=== PATIENT | female | born 1970 | race Caucasian/White ===

== ENCOUNTER 2019-05-03 13:26 | Outpatient (REF) | payer MEDICAID, SELFPAY ==
[2019-05-03 19:47] LABS: HCT 45.6 % (36.0-46.0); HGB 15.2 g/dL (12.0-15.5); Mean Corp. HGB Concentration 33.3 g/dL (32.0-36.0); Mean Corpuscular Hemoglobin 29.6 pg (27.0-33.0); Mean Corpuscular Volume 88.7 fL (80-95); Mean Platelet Volume 13.4 fL (8.0-11.0); Platelet Count 155 x1000/uL (130-400); RBC 5.14 m/cumm (4.00-5.20); RBC Distribution Width 13.7 % (11.7-14.6); White Blood Cell Count 9.72 k/cumm (4.4-10.8)
[2019-05-03 20:19] LABS: Vitamin D 25 Total 12.9 ng/ml (30-100)
[2019-05-03 20:22] LABS: ALT 20 U/L (14-59); AST 13 U/L (15-37); Alkaline Phosphatase 99 U/L (46-116); Anion Gap 10.6 mmol/L (3-11); BUN 9 mg/dL (7-18); Bilirubin, Total 0.3 mg/dL (0.2-1.0); CO2 27.4 mmol/L (21.0-32.0); CREATININE 0.64 mg/dL (0.55-1.02); Calculated LDL 157 mg/dL; Chloride 104 mmol/L (98-107); Cholesterol 230 mg/dL (<200); Ferritin 16 ng/mL (8-252); Glucose 73 mg/dL (74-106); HDL Cholesterol 54 mg/dL (40-60); Potassium 4.1 mmol/L (3.5-5.1); Sodium 142 mmol/L (136-145); TSH (W/Ref FT4) 2.08 uIU/mL (0.36-3.74); Total Protein 7.4 g/dL (6.4-8.2); Triglyceride 96 mg/dL (<150); Vitamin B12 729 pg/mL (193-986)
== END 2019-05-03 13:46 ==
LOC: NCHCN 13:26
PROVIDERS: PCP Nurse Practitioner Family; Visit Provider Nurse Practitioner Family
DX: G47.9 Sleep disorder, unspecified (principal); Z13.220 Encounter for screening for lipoid disorders; Z00.00 Encounter for general adult medical examination without abnormal findings
CPT/HCPCS: 80053; 80061; 82306; 85027; 82607; 82728; 83036; 84443

== ENCOUNTER 2019-06-22 01:41 | Outpatient (CLI) | payer MEDICAID, SELFPAY ==
--- NOTE | 2019-06-22 16:05 | DI.MAMMO_ITS ---
EXAM: MG MAMMO SCREENING CLINICAL HISTORY: [facility]LY [facility], LATER [facility] Z00.00, SCREENING. BASELINE TECHNIQUE: Bilateral full field digital CC and MLO mammographic images were obtained with 3D tomosyn thesis and utilizing computer aided detection (CAD). COMPARISON: Available for comparison. FINDINGS: Masses/Architectural Distortion: None seen. Microcalcifications: No suspicious pleomorphic-type are seen. Skin Thickening/Nipple Retraction: None. IMPRESSION: 1. No significant interval change with no specific features of malignancy noted. 2. Unless there is more urgent need, screening mammography is recommended, as per [employer] guidelines. ACR BI-RAD Category- 1 Negative Breast Density - Category C - Heterogeneously dense The mammogram demonstrates the patient's breast tissue is dense. Dense breast tissue is very common a nd is not abnormal but dense breast tissue can make it harder to find cancer on a mammogram. Also, de nse breast tissue may increase their breast cancer risk. This information about the result of the [facility] mogram report was provided to the patient to raise their awareness. Use this report when you speak wi th the patient about their risks for breast cancer, which includes their family history. At that time , you may recommend for more screening tests (Ultrasound or MRI) as they might be useful based on the ir risk. A negative radiographic report should not delay biopsy if a dominant or clinically suspicious mass is present. Up to ten percent of cancers are not identified on mammography. A negative report may reinforce clinical impression. Adenosis and dense breasts may obscure an underlying neoplasm. False positive reports average 6 to 10%. Patient will receive a letter notifying them of these results.
== END 2019-06-22 02:01 ==
PROVIDERS: PCP Nurse Practitioner Family; Visit Provider Nurse Practitioner Family
DX: Z12.31 Encounter for screening mammogram for malignant neoplasm of breast (principal)
CPT/HCPCS: 77063; 77067

== ENCOUNTER 2019-10-07 01:09 | Outpatient (CLI) | payer MEDICAID, SELFPAY ==
--- NOTE | 2019-10-07 09:35 | DI.RAD_ITS ---
EXAM: XR CHEST 2V PA LATERAL CLINICAL HISTORY: uncontrolled vomiting/can't eat, abnl weight loss, R63.4, R11.10 TECHNIQUE: 2D digital imaging was performed. COMPARISON: No exams were available for comparison FINDINGS: MEDIASTINUM: Normal. HEART: Normal. PULMONARY VASCULATURE: Normal. LUNGS: Clear. PLEURAL SPACE: No pleural effusion or pneumothorax. BONE:Normal. Pectus excavatum deformity. OTHER FINDINGS:Normal. IMPRESSION: No acute pulmonary findings. DATA REPOSITORY: RADIATION DOSE DELIVERED:
== END 2019-10-07 01:29 ==
PROVIDERS: PCP Nurse Practitioner Family; Visit Provider Surgery
DX: R63.4 Abnormal weight loss (principal); R11.10 Vomiting, unspecified
CPT/HCPCS: 71046

== ENCOUNTER 2019-10-11 08:49 | Outpatient (CLI) | payer MEDICAID, SELFPAY ==
[2019-10-12 03:16] LABS: COVID-19 RT-PCR UVMMC Result Negative (Negative)
== END 2019-10-11 09:09 ==
PROVIDERS: PCP Nurse Practitioner Family; Visit Provider Surgery
DX: Z11.59 Encounter for screening for other viral diseases (principal)
CPT/HCPCS: U0003

== ENCOUNTER 2019-10-14 06:54 | Day surgery (SDC) | payer MEDICAID, SELFPAY ==
--- NOTE | 2019-10-14 | DI.CT_ITS ---
EXAM: CT ABDOMEN PELVIS W CLINICAL HISTORY: voting and weight loss. TECHNIQUE: Imaging Protocol: Axial computed tomography images with coronal and sagittal reformatted images were created and reviewed CONTRAST MATERIAL: Intravenous: Omnipaque 350 Contrast volume:100 ml Oral: yes COMPARISON: No exams were available for comparison FINDINGS: ABDOMEN: Lung Bases: Mild dependent changes.. Liver: Normal density. No measurable mass. Gallbladder and biliary tract: No radiodense calculus or dilation. Pancreas: Normal density, no abnormal calcifications or inflammatory process. Spleen: Normal. Kidneys: Normal size, contour and axis. No radiodense stones. There is dilatation of both renal pelv es, right greater than left. The mid right ureter is dilated without evidence of an obstructing ston e. Adrenal glands: No masses seen. Abdominal Aorta: Abdominal portion non-dilated. PELVIS: Bladder: Symmetric distention, no gross wall thickening. Bowel: No obstruction or bowel wall thickening. Normal appendix. Peritoneal cavity: No ascites, collection or mesenteric inflammatory response. Bones: Advanced degenerative disc changes at L5-S1. Reproductive organs: The uterus is deviated toward the right and measures 11.2 by 8.3 x 5.4 cm. The endometrial stripe measures 12 millimeters in thickness. No focal endometrial abnormality or fibroid is seen. Low-density lesions, likely nabothian cysts are noted at the cervix. The left ovary has a normal appearance. The right ovary appears to be located at the posterior aspect of the uterus and shows a cyst measuring 3.2 x 4.4 by 2.4 cm. No free fluid is seen.. Lymph nodes: Unremarkable. Impression: 1. Dilatation of the right renal pelvis and right ureter without evidence of an extra of obstructing stone. 2. 4.4 centimeter air right ovarian cyst. Pelvic ultrasound could be considered for further evaluat ion. RADIATION DOSE DELIVERED: 778.77mGy.cm Total DLP DATA REPOSITORY: All CT scans at this facility are submitted to the National Radiology Data Registry (NRDR) Dose Index Registry (DIR) with the [employer] (ACR). RADIATION OPTIMIZATION: All CT scans at this facility use at least one of these dose optimization te chniques: automated exposure control; mA and/or kV adjustment per patient size (includes targeted exa ms where dose is matched to clinical indication); or iterative reconstruction.
[2019-10-14 07:12] VITALS: BP 114/76; PULSE 74; RESP 16; TEMP 36.4; O2SAT 100
[2019-10-14] MEDS: Lactated Ringers 1,000 ML 80 ML IV (07:26)
--- NOTE | 2019-10-14 09:18 | W.PM.ENDDOP ---
Date of service: 10/14/19 Time of Service: 09:19 Endoscopy Report DATE OF PROCEDURE: 10/14/19 PRE-OP DIAGNOSIS: intractible vomiting/dysphagia/wt loss POST-OP DIAGNOSIS: same PROCEDURE: egd w/ bx SURGEON: Audrey Rousseau ANESTHESIA: MAC ESTIMATED BLOOD LOSS: 1 PATHOLOGY: other DISPOSITION: same day PROCEDURE DESCRIPTION: After informed consent was obtained the patient was take to the procedure room and placed in a supine position. Monitors were applied and a time out was done. The patients name, date of , procedure type, allergies to medications and metal in their body was reviewed. A bite block was placed and the patient was sedated. Once sedated and comfortable the gastroscope was advanced through the oropharynx which was grossly normal into the esophagus. The proximal and mid-esophagus were nl. In the distal esophagus there very minimal irritaton noted. The scope was advanced into the stomach and through the pylorus into the 3rd portion of the duodenum. The duodenum was noted to be nl. Biopsies were done All speimens are retrieved and no bleeding is noted. The scope was retracted back into the stomach and biopsies were done to rule out H. pylori. There were no ulcers. The scope was retroflexed. The cardia and fundus were noted to be normal. There no a hiatal hernia noted. The scope was retracted back into the esophagus and biopsies were done of the GE junction to rule out Salazar's. The Z line was regular- minimal irregular. The scope was removed and the patient was woken up and taken back to [facility] in stable condition. Follow up: 2 wks
--- NOTE | 2019-10-14 09:31 | STOM_PTH ---
PATIENT: Cass Ackerman LOC: [facility] U#:[id number] AGE/SX: 48/F ROOM: RE10/14/[address]: Audrey Rousseau : 1970 BED: DIS: 10/14/2019 SPEC #: [id number] RECD: 10/14/19 12:00 STATUS: RITU LANTIGUA #: [id number] HARMAN: 10/14/19 09:[address]: Audrey Rousseau DEPT: Surgical Specimen RECD BY: Soumya Madera ENTERED: 10/14/19 12:02 SP TYPE: STOMACH OTHR DR: Romie Wise Tissues: 1 - BIOPSY BOWEL 2 - BIOPSY BOWEL 3 - STOMACH BIOPSY 4 - STOMACH BIOPSY 5 - ESOPHAGUS BIOPSY 6 - ESOPHAGUS BIOPSY Procedures: GROSS AND MICRO LEVEL 4 Comments: [id number]
--- NOTE | 2019-10-14 10:02 | W.PM.DSUDISC ---
Discharge Plan Disposition Patient Disposition: HOME Condition: Good Discharge Details Reason For Visit: UNINTENTIONAL WT LOSS Attending Provider: Audrey Rousseau Primary Care Provider: Romie Wise Home Meds and New Rx's Prescriptions: No Action cholecalciferol (vitamin D3) 250 mcg (10,000 unit) tablet 250 mcg PO DAILY RF: 0 amitriptyline 10 mg tablet 10 mg PO QHS RF: 0 Discharge Instructions Additional Instructions: Findings:normal stomach scope no asa/nsaids for 1 wk US- will call to schedule US of gallbladder and of Right ovary. cysts on ovary and mildly enlarged. CT negative Follow up:2 wks Please call if you develop: fevers >101.5 Nausea or Vomiting Abdominal pain that is not transient DAY SURGERY UNIT POST COLONOSCOPY INSTRUCTIONS 1. Because there will be medication in your system for the next 24 hours, you may feel a little sleepy. Your coordination will be affected. Therefore: a. Do not drive or operate dangerous equipment for 24 hours. b. Do not drink alcohol beverages for 24 hours (not even beer). c. Plan to go home and rest for the day. 2. Generally there are no restrictions on your activity after a day or so has gone by, but you may feel a bit fatigued for a few days. 3 After you arrive home you may have a light meal and return to a normal diet as you can tolerate it without feeling sick to your stomach. 4. After surgery, you may feel pain or discomfort. This should be only transient, but if it persists please contact your doctor. 5. If there are any questions regarding the findings of your procedure, please feel free to contact your doctor. 6. If you are unable to contact your doctor with a problem, contact the hospital at [phone]. 7. Continue all your regular medications unless directed otherwise. I understand the above instructions and have no questions. Signature of Patient or Responsible Adult Escort Date/Time Name of Responsible Adult Escort Signature of Nurse Date/Time DS: Diagnosis Discharge Diagnosis (1) Vomiting alone: Status: Acute (2) Smoker unmotivated to quit: Status: Acute (3) Weight loss, unintentional: Status: Acute
[2019-10-14] MEDS: Metoclopramide 10 MG/2 ML VIAL IVP (10:22)
[2019-10-14] MEDS: Omnipaque 350 MG/ML 100 ML BTL IJ (11:33)
[2019-10-14] MEDS: Normal Saline - Diluent 50 ML VIAL IV (11:34)
[2019-10-14] MEDS: Omnipaque 350 MG/ML 50 ML BTL IJ (11:34)
--- NOTE | 2019-10-14 11:46 | NUR.NOTE ---
Tolerated PO contrast after IV Reglan without incident. To radiology for CT and back. IV changed to saline lock. Up to BR to void. Dr. Rousseau in. Nursing Note:
[2019-10-14 11:55] VITALS: BP 110/67; PULSE 70; RESP 16; TEMP 36.3; O2SAT 96
== END 2019-10-14 12:42 | disposition home or self-care (01) ==
PROVIDERS: PCP Nurse Practitioner Family; Visit Provider Surgery
PROC: 0DJ68ZZ Inspection of Stomach, Via Natural or Artificial Opening Endoscopic (ICD-10-PCS; CPT 43235; principal; 2019-10-14 08:15)
DX: R63.4 Abnormal weight loss (principal); R13.10 Dysphagia, unspecified; R11.10 Vomiting, unspecified; K31.89 Other diseases of stomach and duodenum; K21.0 Gastro-esophageal reflux disease with esophagitis; F17.210 Nicotine dependence, cigarettes, uncomplicated
CPT/HCPCS: 43239; 88305; 74177; J2704; J2765; J3490; Q9967

== ENCOUNTER 2019-10-18 09:13 | Outpatient (CLI) | payer MEDICAID, SELFPAY ==
--- NOTE | 2019-10-18 10:00 | DI.US_ITS ---
EXAM: US ABDOMEN LIMITED CLINICAL HISTORY: GB n/v wt loss nl CT and EGD,R63.4,R11.10 TECHNIQUE: Ultrasound performed using standard protocol. COMPARISON: US US PELVIS from 10/18/2019 FINDINGS: Limited ultrasound was performed to evaluate the gallbladder. There is no evidence of cholelithiasis or biliary dilatation. There is negative sonographic Jones sign. Gallbladder wall is not thickene d. Visualized pancreas is unremarkable. IMPRESSION: Negative examination of gallbladder. DATA REPOSITORY:
--- NOTE | 2019-10-18 10:00 | DI.US_ITS ---
EXAM: US PELVIS CLINICAL HISTORY: 4cm right ovarian cyst adn thickened endometrial TECHNIQUE: Ultrasound performed using standard protocol. COMPARISON: CT CT ABDOMEN PELVIS W from 10/14/2019 FINDINGS: Pelvic ultrasound was performed transabdominally and transvaginally. Please see the accompanying brodie a sheet for measurements of the pelvic structures. The endometrial stripe is about 18 millimeters in thickness and appears heterogeneous, this is a nonspecific finding, no focal mass identified. Howev er neoplastic disease is not excluded on basis of this examination. Follow-up ultrasound or endometr ial biopsy should be considered. There is a 33 millimeter in diameter right ovarian simple cyst. This presumably represents a functio nal cyst. No complex or solid ovarian lesion identified. IMPRESSION: Heterogeneous thickening of the endometrial stripe, nonspecific, close ultrasound follow-up or endome trial biopsy recommended. DATA REPOSITORY:
== END 2019-10-18 09:33 ==
PROVIDERS: PCP Nurse Practitioner Family; Visit Provider Surgery
DX: R63.4 Abnormal weight loss (principal); R11.10 Vomiting, unspecified; N83.291 Other ovarian cyst, right side; R93.89 Abnormal findings on diagnostic imaging of other specified body structures
CPT/HCPCS: 76705; 76856

== ENCOUNTER 2020-02-24 18:38 | Outpatient (REF) | payer MEDICAID, SELFPAY ==
[2020-02-24 18:20] LABS: Abs Immature Grans 0.02 10^3/uL (0.0-0.06); Absolute Eosinophil Count 0.29 10^3/uL (0.0-0.7); Absolute Lymphocyte Count 2.44 10^3/uL (1.2-3.4); Absolute Monocyte Count 0.47 10^3/uL (0.1-0.8); Absolute Neutrophil Count 4.28 10^3/uL (1.2-6.7); Basophils % 1.3; Eosinophils % 3.8; HCT 37.5 % (36.0-46.0); HGB 11.8 g/dL (11.2-15.7); Immature Grans % 0.3; Lymphocytes % 32.1; MCHC 31.5 % (32.0-36.0); MCV 82.6 fL (80-95); Monocytes % 6.2; Neutrophils % 56.3; Nucleated RBC 0 %; Platelet Count 183 10^3/uL (130-400); RBC 4.54 10^6/uL (3.93-5.22); RDW 16.2 % (11.7-14.6); RDW-SD 48.9 fL
[2020-02-24 19:17] LABS: ALT 22 U/L (14-59); AST 13 U/L (15-37); Albumin 3.8 g/dL (3.4-5.0); Alkaline Phosphatase 104 U/L (46-116); Amylase 59 U/L (25-115); Anion Gap 10.6 mmol/L (3-11); BUN 6 mg/dL (7-18); Bilirubin, Total 0.2 mg/dL (0.2-1.0); CO2 26.4 mmol/L (21.0-32.0); CREATININE 0.71 mg/dL (0.55-1.02); Calcium 8.8 mg/dL (8.5-10.1); Chloride 103 mmol/L (98-107); Glucose 80 mg/dL (74-106); Potassium 4.1 mmol/L (3.5-5.1); Sodium 140 mmol/L (136-145); Total Protein 7.1 g/dL (6.4-8.2)
[2020-02-28 10:36] LABS: Hepatitis C Ab w Rflx HCV PCR Negative (Negative)
[2020-02-28 11:11] LABS: HIV-1/2 Ag & Ab Screen Negative (Negative)
== END 2020-02-24 18:58 ==
LOC: NCHCN 18:38
PROVIDERS: PCP Nurse Practitioner Family; Visit Provider Nurse Practitioner Family
DX: R10.11 Right upper quadrant pain (principal); Z11.4 Encounter for screening for human immunodeficiency virus [HIV]; Z11.59 Encounter for screening for other viral diseases
CPT/HCPCS: 80053; 86803; 87389; 82150; 85025

== ENCOUNTER 2020-02-25 04:15 | Outpatient (CLI) | payer MEDICAID, SELFPAY ==
--- NOTE | 2020-02-25 | DI.US_ITS ---
EXAM: US PELVIS TRANSVAGINAL CLINICAL HISTORY: ABNORMAL UTERINE BLEEDING, N93.9 TECHNIQUE: Ultrasound performed using standard protocol. COMPARISON: US US ABDOMEN LIMITED from 10/18/2019 FINDINGS: Pelvic ultrasound was performed transabdominally and transvaginally. Uterus measures 10.5 x 5.0 x 5. 9 cm. Right ovary measures 4.8 x 3.8 x 3.9 cm. Left ovary measures 1.9 x 1.2 x 1.2 cm. There is a left ap parent paraovarian cyst measuring roughly 18 x 15 millimeters in diameter. This is a simple cyst. The endometrial stripe measures up to about 2 cm in thickness and is mildly heterogeneous. Multiple small uterine fibroids are noted. No free fluid seen in the cul-de-sac. Limited scanning of the kidneys is unremarkable. IMPRESSION: Bilateral ovarian cysts and multiple fibroids noted. Nonspecific thickening of the endometrial stripe at about 2 cm with heterogeneity. Please correlate with the patient's menopausal status. DATA REPOSITORY:
== END 2020-02-25 04:35 ==
PROVIDERS: PCP Nurse Practitioner Family; Visit Provider Nurse Practitioner Family
DX: N83.292 Other ovarian cyst, left side (principal); N83.291 Other ovarian cyst, right side; D25.9 Leiomyoma of uterus, unspecified
CPT/HCPCS: 76830; 76856

== ENCOUNTER 2020-12-27 19:29 | Emergency (ER) | payer MEDICAID, SELFPAY ==
[2020-12-27 19:51] VITALS: BP 124/85; PULSE 98; RESP 14; TEMP 37.2; O2SAT 97
--- NOTE | 2020-12-27 20:02 | W.ED.GENAD ---
Discharge Plan Disposition Patient Disposition: HOME Condition: Stable Discharge Details Clinical Impression: Abnormal vaginal bleeding, Thickened endometrium, Ovarian cyst Primary Care Provider: Romie Wise ED Provider: Erinn Garcia Home Meds and New Rx's Prescriptions: Continued cholecalciferol (vitamin D3) 250 mcg (10,000 unit) tablet 250 mcg PO DAILY RF: 0 amitriptyline 10 mg tablet 10 mg PO QHS RF: 0 Discharge Instructions Instructions: Abnormal (Dysfunctional) Uterine Bleeding (ED) Additional Instructions: You are slightly more anemic than 1 year ago. However, there is no significant drop or need for blood transfusion at this time. Your CT scan does show thickening of your endometrium or the inside of your vagina again. I would like you to be followed up with [facility] in the next 2 days for reevaluation and discuss this further. If you develop lightheadedness, fevers, increased pain, inability stay hydrated or other new/worsening symptoms please seek care urgently once again. Please call [facility] tomorrow morning to schedule follow up appointment Referrals: Seema Baxter MD [ [facility] STAFF PHYSICIAN] - Discharge Data Discharge Date/Time-TO BE ENTERED AT DEPARTURE: 12/27/20 23:33 Medical Decision Making Patient is a pleasant 50-year-old female presenting today with chief complaint of vaginal bleeding. She reports that she has had daily vaginal bleeding for the past year. However, she reports that she had increased clot size during this afternoon as well as some abdominal cramping. She reports the cramping is new. Patient not anticoagulated, no bleeding abnormalities. Patient reports that when this initially began to the last February, she was seen by her primary care which time an ultrasound was completed as his baseline blood work with no significant abnormality noted. Has not been seen since then. Has not been evaluated by [facility]AL [facility]NAGER. On exam, patient appears anxious. She is tachycardic, pressure is normal. She has a baggy with small clots that she has expelled. She does not appear pale. Her abdomen is diffusely tender but no peritoneal findings. Vaginal exam significant for dark pooled blood, she does not have any brisk bleeding. Her cervix is very firm on exam. No cervical motion tenderness. Labs reviewed. No leukocytosis. Hgb 10, this is down from 11.8 last fall. CMP without sigfnciant abnormality. Coags normal. FINDINGS: Lungs: There are regions of mild scarring/atelectasis within both lung bases. Liver: Normal. No mass. Gallbladder and bile ducts: The gallbladder is contracted and is not well evaluated, but there is no evidence for acute gallbladder inflammation. No gallstones are identified. There is no biliary ductal dilatation. Pancreas: Normal. No ductal dilation. Spleen: Normal. No splenomegaly. Adrenal glands: Normal. No mass. Kidneys and ureters: There is a tiny subcentimeter left renal lesion which is too small to characterize but likely represents a benign cyst. There is mild pelvicaliectasis of the right kidney, improved from prior study. There is mild hydroureter proximally on the right, without clear change. There is no evidence for distal obstructing ureteral stone. No renal stones are identified. Stomach and bowel: There is no evidence of small or large bowel inflammation. There is no evidence for bowel obstruction. Appendix: No evidence of appendicitis. Intraperitoneal space: There is no free intraperitoneal air. Vasculature: The aorta and iliac arteries demonstrate mild atherosclerotic calcification without aneurysm formation. Lymph nodes: Unremarkable. No enlarged lymph nodes. Urinary bladder: No bladder stones are identified. Reproductive: Uterine endometrium appears thickened to approximately 2.2 cm thickness, as seen on sagittal image 76, series 7. This measured 1.2 cm on the prior study. The endometrial stripe measured 2 cm thickness on 02/25/2020, as per the report of the pelvic ultrasound of that date. Again noted are a few tiny low-dense lesions involving the cervix measuring up to 1.2 cm, suggesting nabothian cysts. There is a 1.7 x 1.2 cm left ovarian cyst which is stable since prior study. There are 2 right ovarian cysts, the larger measuring 3.9 x 3.8 cm. Both cysts demonstrate a density of 22-24 Hounsfield units which is above simple fluid attenuation. On prior study, there was a right ovarian cyst measuring 2.1 x 5.0 cm. Bones/joints: There is moderate disc space narrowing and endplate spurring at L5-S1 consistent with moderate degenerative disc disease. There is mild to moderate facet arthrosis of the lower lumbar spine. No acute fractures are identified. Soft tissues: Unremarkable. IMPRESSION: 1. No acute process within the abdomen or pelvis identified. 2. Mild pelvicaliectasis of the right kidney, improved from prior study, with stable proximal mild right hydroureter to the level of the pelvis. There is no evidence for distal obstructing ureteral stone. Findings could reflect chronic distal right ureteral stricture. Correlation with retrograde urological study could be obtained as clinically indicated. 3. Thickened and heterogeneous appearing uterine endometrium, measuring 2.2 cm thickness. The endometrium measured 2 cm thickness on pelvic ultrasound dated 02/25/2020. Findings could reflect endometrial hyperplasia or polyp, but endometrial neoplasm cannot be excluded on this exam. Recommend follow-up pelvic ultrasound. 4. Two low-dense right ovarian lesions, the larger measuring 3.9 x 3.8 cm, likely representing mildly complex cysts. Recommend further evaluation on follow-up pelvic ultrasound. Discussed findings with the patient. She did have a pelvic US last fall with similar results. While she does not appear to have signficant active bleeding, she has had a drop in her hemoglobin. I feel that she would best be served with [facility]. Have encouraged that she call int he morning to schedule appointment. Return precautions discussed. All of her questions and concerns were addressed, she is in agreement with this plan. 12/29/20: called [facility]. Staff will reach out to patient as appointment has not yet been made. HPI General Date/Time Provider Initiated Documentation: 12/27/20 20:01. Limitations to Documentation: no limitations. Information obtained by: patient, RN notes reviewed and old records reviewed. History of Present Illness 50 year old F presents to the emergency department with the chief complaint of cramping and vaginal bleeding, described as moderate, Quality is described as other (cramping), and is localized to the abdomen. Patient reports no radiation. Patient started experiencing this year(s) (1) and it has been constant. No relieving factors improve symptom(s), No exacerbating factors reported . Patient notes denies chest pain, cough, fever/chills, nausea/vomiting, rash, shortness of breath, syncope and weakness. Patient did receive the following treatments prior to arrival, none Related Data Home Medications Medication Instructions Recorded Confirmed amitriptyline 10 mg tablet 10 mg PO QHS 10/04/19 12/27/20 cholecalciferol (vitamin D3) 250 250 mcg PO DAILY 10/04/19 12/27/20 mcg (10,000 unit) tablet Allergies Allergy/AdvReac Type Severity Reaction Status Date / Time No Known Allergies Allergy Unverified 12/27/20 19:55 General Stated Complaint: [facility] GENERAL MANAGER PAULA: 4 Review of Systems Constitutional Constitutional: Reports as per HPI, Denies chills, Denies fatigue, Denies fever(s) and Denies headache(s) ENT Ears, Nose, Mouth, and Throat: Denies headache(s) Cardiovascular Cardiovascular: Reports as per HPI, Denies chest pain and Denies dyspnea Respiratory Respiratory: Reports as per HPI, Denies cough and Denies dyspnea Gastrointestinal Gastrointestinal: Reports as per HPI Musculoskeletal Musculoskeletal: Reports as per HPI and Denies back pain Integumentary/Breasts Skin/Breast: Reports as per HPI and Denies rash Neurologic Neurologic: Reports as per HPI and Denies headache(s) Endocrine Endocrine: Denies fatigue [facility] Medical History (Updated 12/27/20 @ 22:57 by ROSALIE Vance) Adjustment disorder with mixed anxiety and depressed mood Ovarian cyst, right Preop testing Sleep disorder Smoker unmotivated to quit Vomiting alone Weight loss, unintentional Weight loss, unintentional Surgical History BACK SURGERY 2004-10 @ [facility] [place], [place] History of esophagogastroduodenoscopy (EGD) (~10/14/19) Open Carpal Tunnel release (~1996) LEFT HAND @ [facility] Family History Mother Diabetes Hyperlipidemia Father Diabetes Heart disease Grandfather No problems noted. Grandfather No problems noted. Grandmother No problems noted. Grandmother No problems noted. Social History Smoking/Tobacco Use Status: Current every day Tobacco Type: cigarettes Smoking risk assessment performed?: Yes Alcohol Intake: current Alcohol Intake frequency: holidays/special occasions only Alcohol type: hard liquor Drug use: Never Substance use type: does not use Current gender identity: female Do you feel safe at home: Yes Do you feel safe in your relationship?: Yes Exam Const General: cooperative, healthy appearing, comfortable, no acute distress, well developed and anxious Nutritional Appearance: average body habitus and well nourished Orientation: alert and awake HENMT Head: normal to inspection Mouth: moist mucous membranes Resp Effort & Inspection: normal respiratory effort, able to speak in complete sentences and no respiratory distress Auscultation: clear to auscultation bilaterally, no rales, no rhonchi and no wheezes Cardio Rate: regular rate Rhythm: regular rhythm Heart Sounds: S1 normal and S2 normal GI Inspection: normal to inspection, non-distended, no visible herniation and no visible pulsation Palpation: soft, no hepatosplenomegaly, not firm, no guarding, no masses, no pulsatile masses, not rigid and tender (diffusely tender, no peritoneal findings) Percussion: normal to percussion Auscultation: normal bowel sounds External Female Exam: normal external appearance (blood noted at vaginal orifice), no erythema, no tenderness externally and no external swelling Speculum Exam - Vagina: normal appearance of the vagina, not erythematous, no lacerations, vaginal bleeding (blood pooled in posterior aspect, no signficant active bleeding), No tissue present in vagina, no masses, no swelling and nontender Speculum Exam - Cervix: normal appearance of the cervix and nontender (cervix is very firm) Bimanual Exam- Vagina & Uterus: No normal palpation, uterine mobility normal and No tender (cervix is very firm) OB/External & Speculum: no tissue noted in vagina and vaginal bleeding (blood pooled in posterior aspect, no signficant active bleeding) Back/Spine/Pelvis Back: no CVA tenderness Skin General skin exam: no rashes or lesions noted Trauma: no lacerations or abrasions Neuro General: patient alert and patient awake Cognition: normal cognition Speech: speech normal Gait: normal gait Psych Appearance: grossly normal and well kempt Mental Status: mental status grossly normal Speech and Movement: speech and movement normal Course Vital Signs Vital signs: Vital Signs Temperature 37.2 C 12/27/20 19:51 Pulse 98 H 12/27/20 19:51 Respiratory Rate 14 12/27/20 19:51 Blood Pressure 124/85 12/27/20 19:51 Pulse Oximetry 97 12/27/20 19:51 Temperature 37.2 C 12/27/20 19:51 Temperature Source Oral 12/27/20 19:51 Pulse 98 H 12/27/20 19:51 Respiratory Rate 14 12/27/20 19:51 Respiratory Effort Non-Labored 12/27/20 19:55 Blood Pressure 124/85 12/27/20 19:51 Blood Pressure Position Sitting 08/11/21 19:51 Pulse Oximetry 97 12/27/20 19:51 Oxygen Delivery Method Room Air 12/27/20 19:51 Oxygen Flow Rate 0 12/27/20 19:51
--- NOTE | 2020-12-27 20:14 | NUR.NOTE ---
Patient reports gaining 20 pounds in past 3-4 months, headaches worse. Started bleeding 01/12/20. 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 Reports using pads and tampons and passing some quarter sized blood clots. Denies pain or dizziness. Nursing Note:
[2020-12-27] MEDS: Ondansetron 4 MG/2 ML VIAL IVP (21:19)
[2020-12-27] MEDS: Normal Saline 1,000 ML 1000 ML IV (21:20)
[2020-12-27 21:28] LABS: Abs Immature Grans 0.03 10^3/uL (0.0-0.06); Absolute Eosinophil Count 0.29 10^3/uL (0.0-0.7); Absolute Lymphocyte Count 2.55 10^3/uL (1.2-3.4); Absolute Neutrophil Count 5.04 10^3/uL (1.2-6.7); Basophils % 1.2; Eosinophils % 3.4; HCT 33.2 % (36.0-46.0); Immature Grans % 0.3; Lymphocytes % 29.6; MCH 22.8 pg (27.0-33.0); MCHC 30.1 % (32.0-36.0); MCV 75.8 fL (80-95); MPV 11.6 fL (8.0-11.0); Neutrophils % 58.5; Nucleated RBC 0 %; Platelet Count 229 10^3/uL (130-400); RBC 4.38 10^6/uL (3.93-5.22); RDW-SD 43.9 fL; WBC 8.61 10^3/uL (4.4-10.8)
[2020-12-27 21:31] LABS: Bilirubin Negative (Negative); Blood Large (Negative); Clarity Cloudy (Clear); Glucose Negative (Negative); Ketones Negative (Negative); Leukocyte Esterase Negative (Negative); Nitrite Negative (Negative); Specific Gravity 1.025 (1.005-1.025); Urobilinogen 0.2 EU/dL (Up TO 0.2)
[2020-12-27] MEDS: Omnipaque 350 MG/ML 100 ML BTL IJ (21:38)
[2020-12-27] MEDS: Normal Saline Flush 10 ML SYR IVP (21:39)
[2020-12-27] MEDS: Normal Saline - Diluent 50 ML VIAL IV (21:39)
[2020-12-27 21:40] LABS: ALT 28 U/L (14-59); AST 12 U/L (15-37); Albumin 3.5 g/dL (3.4-5.0); Alkaline Phosphatase 113 U/L (46-116); Anion Gap 10.1 mmol/L (3-11); BUN 6 mg/dL (7-18); Bilirubin, Total 0.1 mg/dL (0.2-1.0); CO2 23.9 mmol/L (21.0-32.0); CREATININE 0.7 mg/dL (0.55-1.02); Calcium 8.7 mg/dL (8.5-10.1); Chloride 106 mmol/L (98-107); Glucose 97 mg/dL (74-106); Magnesium 1.9 mg/dL (1.8-2.4); Potassium 3.6 mmol/L (3.5-5.1); Sodium 140 mmol/L (136-145)
--- NOTE | 2020-12-27 21:40 | DI.CT_ITS ---
Exam(s) CT ABDOMEN PELVIS W EXAM: CT ABDOMEN PELVIS W CLINICAL HISTORY: diffuse pain, max RLQ TECHNIQUE: Imaging Protocol: Axial computed tomography images with coronal and sagittal reformatted images were created and reviewed CONTRAST MATERIAL: Intravenous: Omnipaque 350 Contrast volume:100 mL Oral: No COMPARISON: CT CT ABDOMEN PELVIS W from 10/14/2019 FINDINGS: ABDOMEN: Lung Bases: Bilateral basilar dependent atelectasis. Liver: Normal density. No measurable mass. Portal, Superior Mesenteric, and Splenic Veins: Unremarkable. Gallbladder and Biliary Tract: No radiodense calculus or dilation. The gallbladder is contracted. Pancreas: Normal density, no abnormal calcifications or inflammatory process. Spleen: Normal. Adrenals: No masses seen. Kidneys: Normal size, contour and axis. No nephrolithiasis. There is persistent dilatation of the pr oximal right ureter which is unchanged. No intraluminal mass or stone is seen. No masses seen. Ther e is a tiny hypodensity in the midpole of the left kidney. It is too small for further characterizat ion, but likely reflects a small cyst. Abdominal Aorta: Abdominal portion non-dilated. Mild atherosclerosis. Bowel: No obstruction or bowel wall thickening. Appendix is unremarkable. Peritoneal Cavity: No ascites, collection or mesenteric inflammatory response. No free air. Lymph Nodes: Within normal limits. Bones: Within normal limits for the patient's age. Soft Tissues: Unremarkable. PELVIS: Bladder: Symmetric distention, no gross wall thickening. Reproductive Organs: There is a 4.1 cm right ovarian cyst. There is a 3.7 cm right ovarian cyst. Th ere is thickening of the endometrial stripe up to 2 cm. Lymph Nodes: Within normal limits. Bones: Within normal limits for the patient's age. IMPRESSION: 1. No acute abdominal pelvic process. 2. Thickened uterine endometrium up to 2.2 cm. This may represent endometrial hyperplasia or polyp. Recommend follow-up pelvic ultrasound. 3. Persistent stable right hydroureter. No obstructing stone is seen. Urology consult should be con sidered for further evaluation. RADIATION DOSE DELIVERED: 872.34mGy.cm Total DLP DATA REPOSITORY: All CT scans at this facility are submitted to the National Radiology Data Registry (NRDR) Dose Index Registry (DIR) with the [employer] (A[employer]). RADIATION OPTIMIZATION: All CT scans at this facility use at least one of these dose optimization te chniques: automated exposure control; mA and/or kV adjustment per patient size (includes targeted exa ms where dose is matched to clinical indication); or iterative reconstruction.
[2020-12-27 21:43] LABS: C & S Indicated? No/Sq. Contamination; Casts Negative LPF (Negative); Crystals Negative HPF (Negative); Epithelial Cells Many HPF (Negative); Mucus Negative (Negative); RBC >50 HPF (0-2)
[2020-12-27 21:51] LABS: Anisocytosis 1+; Diff Comment Agrees w/ Instrument; Hypochromasia 1+; Microcytosis 1+
[2020-12-27 22:06] LABS: PTT Activated 21.9 sec (21.0-27.5); Prothrombin Time 9.6 sec (9.3-11.0)
--- NOTE | 2020-12-27 22:18 | DI.VRAD_ITS ---
PROCEDURE INFORMATION: Exam: CT Abdomen And Pelvis With Contrast Exam date and time: 12/27/2020 9:07 PM Age: 50 years old Clinical indication: Abdominal pain TECHNIQUE: Imaging protocol: Computed tomography of the abdomen and pelvis with contrast. COMPARISON: CT ABDOMEN PELVIS W 10/14/2019 11:26 AM FINDINGS: Lungs: There are regions of mild scarring/atelectasis within both lung bases. Liver: Normal. No mass. Gallbladder and bile ducts: The gallbladder is contracted and is not well evaluated, but there is no evidence for acute gallbladder inflammation. No gallstones are identified. There is no biliary ductal dilatation. Pancreas: Normal. No ductal dilation. Spleen: Normal. No splenomegaly. Adrenal glands: Normal. No mass. Kidneys and ureters: There is a tiny subcentimeter left renal lesion which is too small to characterize but likely represents a benign cyst. There is mild pelvicaliectasis of the right kidney, improved from prior study. There is mild hydroureter proximally on the right, without clear change. There is no evidence for distal obstructing ureteral stone. No renal stones are identified. Stomach and bowel: There is no evidence of small or large bowel inflammation. There is no evidence for bowel obstruction. Appendix: No evidence of appendicitis. Intraperitoneal space: There is no free intraperitoneal air. Vasculature: The aorta and iliac arteries demonstrate mild atherosclerotic calcification without aneurysm formation. Lymph nodes: Unremarkable. No enlarged lymph nodes. Urinary bladder: No bladder stones are identified. Reproductive: Uterine endometrium appears thickened to approximately 2.2 cm thickness, as seen on sagittal image 76, series 7. This measured 1.2 cm on the prior study. The endometrial stripe measured 2 cm thickness on 02/25/2020, as per the report of the pelvic ultrasound of that date. Again noted are a few tiny low-dense lesions involving the cervix measuring up to 1.2 cm, suggesting nabothian cysts. There is a 1.7 x 1.2 cm left ovarian cyst which is stable since prior study. There are 2 right ovarian cysts, the larger measuring 3.9 x 3.8 cm. Both cysts demonstrate a density of 22-24 Hounsfield units which is above simple fluid attenuation. On prior study, there was a right ovarian cyst measuring 2.1 x 5.0 cm. Bones/joints: There is moderate disc space narrowing and endplate spurring at L5-S1 consistent with moderate degenerative disc disease. There is mild to moderate facet arthrosis of the lower lumbar spine. No acute fractures are identified. Soft tissues: Unremarkable. IMPRESSION: 1. No acute process within the abdomen or pelvis identified. 2. Mild pelvicaliectasis of the right kidney, improved from prior study, with stable proximal mild right hydroureter to the level of the pelvis. There is no evidence for distal obstructing ureteral stone. Findings could reflect chronic distal right ureteral stricture. Correlation with retrograde urological study could be obtained as clinically indicated. 3. Thickened and heterogeneous appearing uterine endometrium, measuring 2.2 cm thickness. The endometrium measured 2 cm thickness on pelvic ultrasound dated 02/25/2020. Findings could reflect endometrial hyperplasia or polyp, but endometrial neoplasm cannot be excluded on this exam. Recommend follow-up pelvic ultrasound. 4. Two low-dense right ovarian lesions, the larger measuring 3.9 x 3.8 cm, likely representing mildly complex cysts. Recommend further evaluation on follow-up pelvic ultrasound. Dictated and Authenticated by: Michael Whelan MD. Ordering:JENNIFER Plasencia MD
[2020-12-27 22:28] VITALS: BP 117/80; PULSE 74; RESP 16; O2SAT 99
== END 2020-12-27 23:33 | disposition home or self-care (01) ==
PROVIDERS: Emergency Provider Physician Assistant; PCP Nurse Practitioner Family
DX: N92.1 Excessive and frequent menstruation with irregular cycle (principal); R93.89 Abnormal findings on diagnostic imaging of other specified body structures; D64.9 Anemia, unspecified; N83.201 Unspecified ovarian cyst, right side
CPT/HCPCS: 36415; 80053; 96361; 96374; 99285; 74177; 81003; 81015; 83735; 85025; 85610; 85730; 99284; J2405; J3490

== ENCOUNTER 2021-01-15 03:11 | Outpatient (CLI) | payer MEDICAID, SELFPAY ==
[2021-01-15 13:26] LABS: Source Nasal/Nares
[2021-01-15 18:40] LABS: COVID-19 PCR Negative (Negative)
== END 2021-01-15 03:12 | disposition home or self-care (01) ==
PROVIDERS: PCP Nurse Practitioner Family; Visit Provider Obstetrics & Gynecology
DX: Z20.822 Contact with and (suspected) exposure to COVID-19 (principal); Z01.818 Encounter for other preprocedural examination
CPT/HCPCS: 87635

== ENCOUNTER 2021-01-15 03:41 | Outpatient (CLI) | payer MEDICAID, SELFPAY ==
[2021-01-15 08:47] LABS: Abs Immature Grans 0.03 10^3/uL (0.0-0.06); Absolute Basophil Count 0.08 10^3/uL (0.0-0.2); Absolute Eosinophil Count 0.25 10^3/uL (0.0-0.7); Absolute Lymphocyte Count 1.53 10^3/uL (1.2-3.4); Absolute Monocyte Count 0.49 10^3/uL (0.1-0.8); Absolute Neutrophil Count 5.67 10^3/uL (1.2-6.7); Eosinophils % 3.1; HCT 30.9 % (36.0-46.0); Immature Grans % 0.4; MCH 22.3 pg (27.0-33.0); MCHC 29.1 % (32.0-36.0); MCV 76.5 fL (80-95); MPV 11.1 fL (8.0-11.0); Monocytes % 6.1; Neutrophils % 70.4; Nucleated RBC 0 %; Platelet Count 217 10^3/uL (130-400); RBC 4.04 10^6/uL (3.93-5.22); RDW 16.7 % (11.7-14.6); RDW-SD 46.5 fL; WBC 8.05 10^3/uL (4.4-10.8)
== END 2021-01-15 03:42 | disposition home or self-care (01) ==
LOC: LBO 03:41
PROVIDERS: PCP Nurse Practitioner Family; Visit Provider Obstetrics & Gynecology
DX: N92.1 Excessive and frequent menstruation with irregular cycle (principal); D25.9 Leiomyoma of uterus, unspecified; N83.291 Other ovarian cyst, right side; N83.292 Other ovarian cyst, left side; Z01.818 Encounter for other preprocedural examination; Z01.812 Encounter for preprocedural laboratory examination; Z20.822 Contact with and (suspected) exposure to COVID-19
CPT/HCPCS: 36415; 86850; 86900; 86901; 87635; 85025

== ENCOUNTER 2021-01-17 07:24 | Day surgery (SDC) | payer MEDICAID, SELFPAY ==
[2021-01-17] VITALS (7 sets, daily range): BP systolic 102–118; BP diastolic 51–66; PULSE 62–70; RESP 12–16; TEMP 36–36.5; O2SAT 97–100; BMI 30.6
--- NOTE | 2021-01-17 06:11 | W.ANESPRE ---
General Info Height: 5 ft 6 in Weight: 81.647 kg Body Mass Index (BMI): 29.0 Surgical Procedure: Operation Date: 01/17/21 09:10 Proposed Procedures Side Surgeon p Dilation & Curettage with Hysteroscopy DO Taina Barahona Allergies and Home Medications Allergies Allergy/AdvReac Type Severity Reaction Status Date / Time No Known Allergies Allergy Unverified 01/15/21 13:13 Home Medication Medication Instructions Recorded amitriptyline 10 mg tablet 10 mg PO QHS 10/04/19 cholecalciferol (vitamin D3) 250 250 mcg PO DAILY 10/04/19 mcg (10,000 unit) tablet norethindrone acetate 5 mg tablet 5 mg PO BID #90 tab MDD QID 12/29/20 Current Visit Medications: Current Medications Generic Name Dose Route Start Last Admin Trade Name Freq PRN Reason Stop Dose Admin Ringer's Solution 1,000 mls @ 125 mls/hr 01/17/21 06:00 IV 02/15/21 23:59 INFUSION APARNA IV Miscellaneous Supplies 1 each 01/17/21 06:00 Iv Access IV 02/15/21 23:59 DIRECTED APARNA Sodium Chloride 0 ml 01/17/21 06:00 Normal Saline Flush 10 Ml Syr IV 02/15/21 23:59 PRN PRN Sodium Chloride 0 ml 01/17/21 06:00 Normal Saline 10 Ml Vial IJ 02/15/21 23:59 DIRECTED PRN Sterile Water 0 ml 01/17/21 06:00 Water,Injection,Sterile 10 Ml Vial IJ 02/15/21 23:59 DIRECTED PRN PFSH Active Problems Active Problems: Problem Status Onset Code Bilateral ovarian cysts N83.201, N83.202 Abnormal vaginal bleeding N93.9 Thickened endometrium R93.89 Ovarian cyst N83.209 Back pain M54.9 Ovarian cyst, right N83.201 Preop testing Z01.818 Vomiting alone R11.10 Smoker unmotivated to quit F17.200 Weight loss, unintentional R63.4 Medical History Medical History Adjustment disorder with mixed anxiety and depressed mood Bilateral ovarian cysts Ovarian cyst, right Preop testing Sleep disorder Smoker unmotivated to quit Vomiting alone Weight loss, unintentional Weight loss, unintentional Surgical History Surgical History BACK SURGERY 2004- @ [facility] [place] History of esophagogastroduodenoscopy (EGD) (~10/14/19) Open Carpal Tunnel release (~1996) LEFT HAND @ [facility] Tobacco Smoking/Tobacco Use Status: Current every day Tobacco Type: cigarettes Alcohol Alcohol Intake: current Alcohol intake frequency: holidays/special occasions only Alcohol type: hard liquor Substance Use Substance use: Never Substance use type: does not use Vital Signs and Lab Results Lab Results Blood Type / Crossmatch: Patient ABO/Rh B Negative 01/15/21 08:37 01/15/21 Antibody Screen NEGATIVE 01/15/21 08:37 01/15/21 Complete Blood Count: White Blood Count 8.05 10^3/uL (4.4-10.8) 01/15/21 08:37 01/15/21 Red Blood Count 4.04 10^6/uL (3.93-5.22) 01/15/21 08:37 01/15/21 Hemoglobin 9.0 g/dL (11.2-15.7) L 01/15/21 08:37 01/15/21 Hematocrit 30.9 % (36.0-46.0) L 01/15/21 08:37 01/15/21 Platelet Count 217 10^3/uL (130-400) 01/15/21 08:37 01/15/21 Complete Metabolic Panel: Sodium Level 140 mmol/L (136-145) 12/27/20 21:10 12/27/20 Potassium Level 3.6 mmol/L (3.5-5.1) 12/27/20 21:10 12/27/20 Chloride Level 106 mmol/L (98-107) 12/27/20 21:10 12/27/20 Carbon Dioxide Level 23.9 mmol/L (21.0-32.0) 12/27/20 21:10 12/27/20 Blood Urea Nitrogen 6 mg/dL (7-18) L 12/27/20 21:10 12/27/20 Creatinine 0.7 mg/dL (0.55-1.02) 12/27/20 21:10 12/27/20 Estimated GFR/1.73 m2 >= 60.00 (mL/min/1.73m2) 12/27/20 21:10 12/27/20 Magnesium Level 1.9 mg/dL (1.8-2.4) 12/27/20 21:10 12/27/20 Calcium Level 8.7 mg/dL (8.5-10.1) 12/27/20 21:10 12/27/20 Albumin 3.5 g/dL (3.4-5.0) 12/27/20 21:10 12/27/20 Glucose Level 97 mg/dL (74-106) 12/27/20 21:10 12/27/20 Liver Function Panel: Alanine Aminotransferase (ALT/SGPT) 28 U/L (14-59) 12/27/20 21:10 12/27/20 Aspartate Amino Transf (AST/SGOT) 12 U/L (15-37) L 12/27/20 21:10 12/27/20 Coagulation Panel: INR International Normalized Ratio 1.0 (0.9-1.1) 12/27/20 21:10 12/27/20 Prothrombin Time 9.6 sec (9.3-11.0) 12/27/20 21:10 12/27/20 Activated Partial Thromboplast Time 21.9 sec (21.0-27.5) 12/27/20 21:10 12/27/20 Cardiac Panel: No Data to Display Arterial Blood Gas: No Data to Display Venous Blood Gas: No Data to Display Pancreas Panel: No Data to Display Thyroid Panel: No Data to Display Infectious Disease: Coronavirus (COVID-19)(PCR) Negative (Negative) 01/15/21 08:47 01/15/21 Coronavirus 2019 Source Nasal/Nares 01/15/21 08:47 01/15/21 Blood Cultures: No Data to Display Toxicology Panel: No Data to Display Panel: No Data to Display Anesthesia Assessment and Plan Anesthesia History Personal History: No History of Anesthesia Complications Family History: No Family History of Anesthesia Complications Exercise Tolerance Exercise Tolerance: Metabolic Equivalents>4 Cardiac & Pulmonary Exam Cardiac Exam: Normal S1/S2 Heart Sounds Pulmonary Exam: Clear Bilateral Breath Sounds ASA Classification ASA Score: ASA 2 NPO Status NPO Status: NPO Clears >2 hours, Solids >8 hours Anesthesia Plan Resuscitation Status: Full Code Anesthesia Technique: General Anesthesia Airway Planned: Natural Airway Monitors Used: Standard Monitors Preoperative Comments:: 50 yo female for D/C, hysteroscopy due to abnormal vaginal bleeding. previous anesthesia at [facility] EGD without issues.
--- NOTE | 2021-01-17 07:57 | ANES.PREOP_ITS ---
General Info Date of Service Date Performed: 01/17/21 Height: 5 ft 6 in Weight: 86.1 kg Body Mass Index (BMI): 30.6 Surgical Procedure: Operation Date: 01/17/21 09:10 Proposed Procedures Side Surgeon p Dilation & Curettage with Hysteroscopy Ana Rosa Bailey DO Meds Allergies and Home Medications Allergies Allergy/AdvReac Type Severity Reaction Status Date / Time No Known Allergies Allergy Unverified 01/17/21 07:33 Home Medication Medication Instructions Recorded amitriptyline 10 mg tablet 10 mg PO QHS 10/04/19 cholecalciferol (vitamin D3) 250 250 mcg PO DAILY 10/04/19 mcg (10,000 unit) tablet norethindrone acetate 5 mg tablet 5 mg PO BID #90 tab MDD QID 12/29/20 Current Visit Medications: Current Medications Generic Name Dose Route Start Last Admin Trade Name Freq PRN Reason Stop Dose Admin Fentanyl 0 mcg 01/17/21 06:18 Fentanyl 100 Mcg/2 Ml Vial IVP DIRECTED PRN Ringer's Solution 1,000 mls @ 125 mls/hr 01/17/21 06:00 IV 02/15/21 23:59 INFUSION [facility] IV Miscellaneous Supplies 1 each 01/17/21 06:00 Iv Access IV 02/15/21 23:59 DIRECTED APARNA Naloxone HCl 0 mg 01/17/21 06:18 Naloxone 0.4 Mg/Ml Vial IVP PRN PRN Sodium Chloride 0 ml 01/17/21 06:00 Normal Saline Flush 10 Ml Syr IV 02/15/21 23:59 PRN PRN Sodium Chloride 0 ml 01/17/21 06:00 Normal Saline 10 Ml Vial IJ 02/15/21 23:59 DIRECTED PRN Sterile Water 0 ml 01/17/21 06:00 Water,Injection,Sterile 10 Ml Vial IJ 02/15/21 23:59 DIRECTED PRN PFSH Active Problems Active Problems: Problem Status Onset Code Bilateral ovarian cysts N83.201, N83.202 Abnormal vaginal bleeding N93.9 Thickened endometrium R93.89 Ovarian cyst N83.209 Back pain M54.9 Ovarian cyst, right N83.201 Preop testing Z01.818 Vomiting alone R11.10 Smoker unmotivated to quit F17.200 Weight loss, unintentional R63.4 Medical History Medical History Adjustment disorder with mixed anxiety and depressed mood Bilateral ovarian cysts Ovarian cyst, right Preop testing Sleep disorder Smoker unmotivated to quit Vomiting alone Weight loss, unintentional Weight loss, unintentional Surgical History [place] [facility] [place] of esophagogastroduodenoscopy (EGD) (~10/14/19) Open Carpal Tunnel release (~1996) LEFT HAND @ [facility] Tobacco Smoking/Tobacco Use Status: Current every day Tobacco Type: cigarettes Alcohol Alcohol Intake: current Alcohol intake frequency: holidays/special occasions only Alcohol type: hard liquor Substance Use Substance use: Never Substance use type: does not use Vital Signs and Lab Results Vital Signs Most Recent Vital Signs in EMR: Most Recent Vital Signs Temp Pulse Resp BP Pulse Ox 36.5 C 70 14 118/66 99 01/17/21 07:35 01/17/21 07:35 01/17/21 07:35 01/17/21 07:35 01/17/21 07:35 Lab Results Blood Type / Crossmatch: Patient ABO/Rh B Negative 01/15/21 08:37 01/15/21 Antibody Screen NEGATIVE 01/15/21 08:37 01/15/21 Complete Blood Count: White Blood Count 8.05 10^3/uL (4.4-10.8) 01/15/21 08:37 01/15/21 Red Blood Count 4.04 10^6/uL (3.93-5.22) 01/15/21 08:37 01/15/21 Hemoglobin 9.0 g/dL (11.2-15.7) L 01/15/21 08:37 01/15/21 Hematocrit 30.9 % (36.0-46.0) L 01/15/21 08:37 01/15/21 Platelet Count 217 10^3/uL (130-400) 01/15/21 08:37 01/15/21 Complete Metabolic Panel: Sodium Level 140 mmol/L (136-145) 12/27/20 21:10 12/27/20 Potassium Level 3.6 mmol/L (3.5-5.1) 12/27/20 21:10 12/27/20 Chloride Level 106 mmol/L (98-107) 12/27/20 21:10 12/27/20 Carbon Dioxide Level 23.9 mmol/L (21.0-32.0) 12/27/20 21:10 12/27/20 Blood Urea Nitrogen 6 mg/dL (7-18) L 12/27/20 21:10 12/27/20 Creatinine 0.7 mg/dL (0.55-1.02) 12/27/20 21:10 12/27/20 Estimated GFR/1.73 m2 >= 60.00 (mL/min/1.73m2) 12/27/20 21:10 12/27/20 Magnesium Level 1.9 mg/dL (1.8-2.4) 12/27/20 21:10 12/27/20 Calcium Level 8.7 mg/dL (8.5-10.1) 12/27/20 21:10 12/27/20 Albumin 3.5 g/dL (3.4-5.0) 12/27/20 21:10 12/27/20 Glucose Level 97 mg/dL (74-106) 12/27/20 21:10 12/27/20 Liver Function Panel: Alanine Aminotransferase (ALT/SGPT) 28 U/L (14-59) 12/27/20 21:10 12/27/20 Aspartate Amino Transf (AST/SGOT) 12 U/L (15-37) L 12/27/20 21:10 12/27/20 Coagulation Panel: INR International Normalized Ratio 1.0 (0.9-1.1) 12/27/20 21:10 12/27/20 Prothrombin Time 9.6 sec (9.3-11.0) 12/27/20 21:10 12/27/20 Activated Partial Thromboplast Time 21.9 sec (21.0-27.5) 12/27/20 21:10 12/27/20 Cardiac Panel: No Data to Display Arterial Blood Gas: No Data to Display Venous Blood Gas: No Data to Display Pancreas Panel: No Data to Display Thyroid Panel: No Data to Display Infectious Disease: Coronavirus (COVID-19)(PCR) Negative (Negative) 01/15/21 08:47 01/15/21 Coronavirus 2019 Source Nasal/Nares 01/15/21 08:47 01/15/21 Blood Cultures: No Data to Display Toxicology Panel: No Data to Display Panel: No Data to Display Anesthesia Assessment and Plan Anesthesia History Personal History: No History of Anesthesia Complications Family History: No Family History of Anesthesia Complications Exercise Tolerance Exercise Tolerance: Metabolic Equivalents>4 Pertinent Negatives Pertinent Negatives: No Symptoms of GERD, No Major Cardiovascular Symptoms or Complaints, No Major Pulmonary Symptoms or Complaints and No History of CVA/TIA Cardiac & Pulmonary Exam Cardiac Exam: Normal S1/S2 Heart Sounds Pulmonary Exam: Clear Bilateral Breath Sounds Airway Exam Known Difficult Airway: No Mallampati Class: 4 Mouth Opening: Normal (> 3cm) Thyromental Distance: Greater than 3 cm Neck Range of Motion: Full ROM Neck Circumference: Normal Teeth Condition: Normal Dentition Airway Comments: High angle narrow palate ASA Classification ASA Score: ASA 2 Emergency Case?: No NPO Status NPO Status: NPO Clears >2 hours, Solids >8 hours Status Status: Negative HCG Anesthesia Plan Resuscitation Status: Full Code Anesthesia Technique: General Anesthesia Airway Planned: LMA Monitors Used: Standard Monitors
[2021-01-17] MEDS: Lactated Ringers 1,000 ML 125 ML IV (08:00)
--- NOTE | 2021-01-17 09:48 | ENDO_PTH ---
PATIENT: Cass Ackerman LOC: [facility] U#:[id number] AGE/SX: 50/F ROOM: RE01/17/[address]: Ana Rosa Bailey DO : 1970 BED: DIS: 01/17/2021 SPEC #: [id number] RECD: 01/17/21 12:50 STATUS: RITU REQ #: [id number] HARMAN: 01/17/21 09:[address]: Ana Rosa Bailey DEPT: Surgical Specimen RECD BY: Soumya Madera ENTERED: 01/17/21 12:50 SP TYPE: Endo OTHR DR: Romie Wise Tissues: 1 - ENDOCERVICAL BX/CURRETTE 2 - ENDOMETRIUM BX/CURRETTE Procedures: GROSS AND MICRO LEVEL 4 Comments: [id number]
--- NOTE | 2021-01-17 09:56 | W.PM.OP ---
Date of service: 01/17/21 Time of Service: 09:56 Operative Note Operative Note DATE OF PROCEDURE: 01/17/21 PRE-OP DIAGNOSIS: Symptomatic uterine fibroids, abnormal uterine bleeding, symptomatic anemia POST-OP DIAGNOSIS: same PROCEDURE: Hysteroscopy with dilation and curettage SURGEON: Ana Rosa Bailey ANESTHESIA TYPE: General:No Airway Refer to Anesthesia Record ESTIMATED BLOOD LOSS: 20 PATHOLOGY: other (1. Endocervical curetting 2. Endometrial curetting) COMPLICATIONS: None Patient was transported to: PACU Patient's condition: stable Indications: Abnormal uterine bleeding with known uterine fibroids, thickened endometrium, symptomatic anemia Findings: 14 to 16-week size bulky fibroid uterus with anterior lower uterine segment fibroid measuring approximately 2 cm. [place] endometrium. No discrete polypoid mass or lesion noted in endometrial cavity. As of note, patient is not a candidate for laparoscopically assisted vaginal hysterectomy. Procedure Description: Patient was taken to the operating room with an IV running. She was placed in the dorsal supine position and anesthesia administered, tested and found to be adequate. She was then placed in the modified dorsolithotomy position in [facility] stirps and prepped and draped in usual sterile fashion. Exam under anesthesia reveals a significantly enlarged bulky uterus measuring approximately 14 to 16 weeks size. It is mobile, however has very little in the way of descent. At this point speculum was inserted and a single-tooth tenaculum used to grasp the anterior lip of the cervix. Cervix was dilated to the point that a 5 mm hysteroscope could be passed with ease. With instillation of normal saline the endometrial cavity was visualized. It was noted to be plush, overgrown, and no discrete polypoid lesion or mass noted. At this point the hysteroscope was removed and a gentle sharp curettage first of the lower uterine segment followed by the endometrium was performed. Specimens were sent separately. At this point the tenaculum was removed and speculum removed. Patient was returned to the dorsal supine position and awoke from anesthesia with ease. Complications: None apparent EBL: 20 mL Findings, bulky enlarged uterus approximately 14 to 16 weeks size with an anterior lower segment versus cervical fibroid. Patient is not a candidate for laparoscopically assisted vaginal hysterectomy. Pathology: 1. Endocervical curettage 2. Endometrial curettage
--- NOTE | 2021-01-17 10:39 | W.ANESPOSTOP ---
Postoperative Evaluation Date, Time and Location Date Performed: 01/17/21 Time Performed: 10:39 Patient Location: Day Surgery Unit Vital Signs Most Recent Imported Vital Signs: Most Recent Vital Signs Temp Pulse Resp BP Pulse Ox 36 C L 62 14 109/51 L 100 01/17/21 10:25 01/17/21 10:25 01/17/21 10:25 01/17/21 10:01/17/21 10:25 Pain Score Most Recent Pain Score: Most Recent Pain Score Pain Level 0 01/17/21 10:25 Assessment Mental Status: Awake (Alert & Oriented to Patient Baseline) Airway and Respiratory Function: Patent airway with normal (patient baseline) respiratory exam Cardiovascular Function: Hemodynamically Stable Hydration Status: Adequately Hydrated Nausea & Vomiting: No Nausea or Vomiting Pain: Pt. Denies Any Pain Peripheral Nerve Block: Patient did not receive a nerve block
== END 2021-01-17 11:10 | disposition home or self-care (01) ==
PROVIDERS: PCP Nurse Practitioner Family; Visit Provider Obstetrics & Gynecology
PROC: 0UDB8ZZ Extraction of Endometrium, Via Natural or Artificial Opening Endoscopic (ICD-10-PCS; CPT 58558; principal; 2021-01-17 09:00)
DX: N84.0 Polyp of corpus uteri (principal); N93.9 Abnormal uterine and vaginal bleeding, unspecified; D64.9 Anemia, unspecified; Z98.890 Other specified postprocedural states; R93.89 Abnormal findings on diagnostic imaging of other specified body structures
CPT/HCPCS: 58558; 88305; J1100; J1885; J2001; J2405

== ENCOUNTER 2021-02-02 08:07 | Outpatient (REF) | payer MEDICAID, SELFPAY | END 2021-02-02 08:08 | disposition home or self-care (01) | LOC: LBN 08:07 | PROVIDERS: PCP Nurse Practitioner Family; Visit Provider Obstetrics & Gynecology | DX: R35.0 Frequency of micturition (principal) | CPT/HCPCS: 87086 ==

== ENCOUNTER 2021-03-08 01:42 | Outpatient (CLI) | payer MEDICAID, SELFPAY ==
--- NOTE | 2021-03-08 07:45 | DI.US_ITS ---
Exam(s) US PELVIS TRANSVAGINAL EXAM: US PELVIS TRANSVAGINAL CLINICAL HISTORY: Recheck ovarian cyst, juan ovarian cysts, s/p dilation TECHNIQUE: Ultrasound of the pelvis was performed both transabdominal and transvaginal. COMPARISON: US US PELVIS TRANSVAGINAL from 02/25/2020 FINDINGS: UTERUS: Nongravid and anteverted Measures 10.6 cm length x 6.5 cm AP x 7.5 cm wide. There are no uterine fibroids. Endometrial thickness measures 9.5 mm. There is no fluid in the endometrial canal. CERVIX: There are no obvious nabothian cysts. RIGHT OVARY: Measures 4.4 x 3.4 x 3.8 cm There are multiple cysts in the right ovary. The dominant cyst measures 2.3 x 2.8 x 2.5 cm. Vascula r flow demonstrated in this ovary LEFT OVARY: Measures 5.1 x 4.4 x 5.1 cm Contains a partially septated cystic structure measuring 4.2 x 4.6 x 4.2 cm.. Appears somewhat compl ex CUL-DE-SAC: No free fluid evident. IMPRESSION: 1. Normal-appearing uterus. Mildly thickened endometrium. No fluid in the endometrial canal. 2. 4.6 x 4.2 cm septated complex cyst in the left ovary. This require close follow-up. 3. Simple cysts in the opposite-right ovary, the largest measuring 0.5 x 2.8 cm. No free fluid. Recommend repeat ultrasound in 2 months time. DATA REPOSITORY:
== END 2021-03-08 02:02 ==
PROVIDERS: PCP Nurse Practitioner Family; Visit Provider Obstetrics & Gynecology
DX: N83.291 Other ovarian cyst, right side (principal); Z98.890 Other specified postprocedural states; N83.292 Other ovarian cyst, left side
CPT/HCPCS: 76830; 76856

== ENCOUNTER 2021-03-26 03:26 | Outpatient (CLI) | payer MEDICAID, SELFPAY ==
[2021-03-26 08:41] LABS: HCT 36.9 % (36.0-46.0); HGB 10.7 g/dL (11.2-15.7); MCH 20.9 pg (27.0-33.0); MCV 72.1 fL (80-95); Nucleated RBC 0 %; Platelet Count 273 10^3/uL (130-400); RBC 5.12 10^6/uL (3.93-5.22); RDW 18.6 % (11.7-14.6); RDW-SD 47.5 fL; WBC 9.26 10^3/uL (4.4-10.8)
[2021-03-26 09:00] LABS: Absolute Basophil Count 0.19 10^3/uL (0.0-0.2); Absolute Eosinophil Count 0.37 10^3/uL (0.0-0.7); Absolute Lymphocyte Count 1.85 10^3/uL (1.2-3.4); Absolute Monocyte Count 0.65 10^3/uL (0.1-0.8); Atypical Lymphocytes % 4; Diff Comment Manual Differential; Hypochromasia 1+; Microcytosis 1+
[2021-03-26 11:39] LABS: Source Nasal/Nares
[2021-03-26 15:51] LABS: COVID-19 PCR Negative (Negative)
== END 2021-03-26 03:27 | disposition home or self-care (01) ==
LOC: LBO 03:26
PROVIDERS: PCP Nurse Practitioner Family; Visit Provider Obstetrics & Gynecology
DX: Z20.822 Contact with and (suspected) exposure to COVID-19 (principal); Z01.818 Encounter for other preprocedural examination
CPT/HCPCS: 36415; 86850; 86900; 86901; 87635; 85025

== ENCOUNTER 2021-03-28 07:49 | Inpatient (IN) | payer MEDICAID, SELFPAY ==
[2021-03-28] VITALS (16 sets, daily range): BP systolic 102–122; BP diastolic 45–81; PULSE 68–87; RESP 12–18; TEMP 36–36.5; O2SAT 96–100; BMI 31.1
[2021-03-28] MEDS: Lactated Ringers 1,000 ML 125 ML IV ×3 (08:34→19:42)
--- NOTE | 2021-03-28 09:32 | W.ANESPRE ---
General Info Date of Service Date Performed: 03/28/21 Height: 5 ft 6 in Weight: 87.4 kg Body Mass Index (BMI): 31.1 Surgical Procedure: Operation Date: 03/28/21 10:40 Proposed Procedures Side Surgeon p Hysterectomy Vaginal Laparoscopic Assist Ana Rosa Bailey DO Meds Allergies and Home Medications Allergies Allergy/AdvReac Type Severity Reaction Status Date / Time No Known Allergies Allergy Unverified 03/28/21 08:14 Home Medication Medication Instructions Recorded cholecalciferol (vitamin D3) 250 250 mcg PO DAILY 10/04/19 mcg (10,000 unit) tablet ibuprofen 800 mg PO Q8H #30 tab 01/17/21 norethindrone acetate 5 mg tablet 5 mg PO BID #90 tab MDD QID 02/02/21 Current Visit Medications: Current Medications Generic Name Dose Route Start Last Admin Trade Name Freq PRN Reason Stop Dose Admin Ringer's Solution 1,000 mls @ 125 mls/hr 03/28/21 06:00 03/28/21 08:34 IV 04/17/21 23:59 125 mls/hr INFUSION APARNA Administration Cefazolin Sodium 2,000 mg/ 100 mls @ 200 mls/hr 03/28/21 06:00 Sodium Chloride IVPB 03/28/21 16:00 PREOP APARNA IV Miscellaneous Supplies 1 each 03/28/21 06:00 Iv Access IV 04/17/21 23:59 DIRECTED APARNA Sodium Chloride 0 ml 03/28/21 06:00 Normal Saline Flush 10 Ml Syr IV 04/17/21 23:59 PRN PRN Sodium Chloride 0 ml 03/28/21 06:00 Normal Saline 10 Ml Vial IJ 04/17/21 23:59 DIRECTED PRN Sterile Water 0 ml 03/28/21 06:00 Water,Injection,Sterile 10 Ml Vial IJ 04/17/21 23:59 DIRECTED PRN PFSH Active Problems Active Problems: Problem Status Onset Code Abdominal pain R10.9 Status post dilation and curettage Z98.890 Bilateral ovarian cysts N83.201, N83.202 Abnormal vaginal bleeding N93.9 Thickened endometrium R93.89 Ovarian cyst N83.209 Back pain M54.9 Ovarian cyst, right N83.201 Preop testing Z01.818 Vomiting alone R11.10 Smoker unmotivated to quit F17.200 Weight loss, unintentional R63.4 Medical History Medical History Abdominal pain Adjustment disorder with mixed anxiety and depressed mood Bilateral ovarian cysts Ovarian cyst, right Preop testing Sleep disorder Smoker unmotivated to quit Vomiting alone Weight loss, unintentional Weight loss, unintentional Surgical History Surgical History BACK SURGERY 2004- @ [facility] [place] History of esophagogastroduodenoscopy (EGD) (~10/14/19) Open Carpal Tunnel release (~1996) LEFT HAND @ [facility] [place] Status post dilation and curettage Tobacco Smoking/Tobacco Use Status: Current every day Tobacco Type: cigarettes Alcohol Alcohol Intake: current Alcohol intake frequency: holidays/special occasions only Alcohol type: hard liquor Substance Use Substance use: Never Substance use type: does not use Vital Signs and Lab Results Vital Signs Most Recent Vital Signs in EMR: Most Recent Vital Signs Temp Pulse Resp BP Pulse Ox 36.5 C 83 16 118/72 99 03/28/21 08:10 03/28/21 08:10 03/28/21 08:10 03/28/21 08:10 03/28/21 08:10 Point of Care Results Point of Care Results: POC- Test(urine) Negative 03/28/21 08:34 Lab Results Blood Type / Crossmatch: Patient ABO/Rh B Negative 03/26/21 08:30 03/26/21 Antibody Screen NEGATIVE 03/26/21 08:30 03/26/21 Complete Blood Count: White Blood Count 9.26 10^3/uL (4.4-10.8) 03/26/21 08:30 03/26/21 Red Blood Count 5.12 10^6/uL (3.93-5.22) 03/26/21 08:30 03/26/21 Hemoglobin 10.7 g/dL (11.2-15.7) L 03/26/21 08:30 03/26/21 Hematocrit 36.9 % (36.0-46.0) 03/26/21 08:30 03/26/21 Platelet Count 273 10^3/uL (130-400) 03/26/21 08:30 03/26/21 Complete Metabolic Panel: No Data to Display Liver Function Panel: No Data to Display Coagulation Panel: No Data to Display Cardiac Panel: No Data to Display Arterial Blood Gas: No Data to Display Venous Blood Gas: No Data to Display Pancreas Panel: No Data to Display Thyroid Panel: No Data to Display Infectious Disease: Coronavirus (COVID-19)(PCR) Negative (Negative) 03/26/21 09:50 03/26/21 Coronavirus 2019 Source Nasal/Nares 03/26/21 09:50 03/26/21 Blood Cultures: No Data to Display Toxicology Panel: No Data to Display Panel: No Data to Display Anesthesia Assessment and Plan Anesthesia History Personal History: No History of Anesthesia Complications Family History: No Family History of Anesthesia Complications Exercise Tolerance Exercise Tolerance: Metabolic Equivalents>4 Pertinent Negatives Pertinent Negatives: No Symptoms of GERD, No Major Cardiovascular Symptoms or Complaints, No Major Pulmonary Symptoms or Complaints and No History of CVA/TIA Cardiac & Pulmonary Exam Cardiac Exam: Normal S1/S2 Heart Sounds Pulmonary Exam: Clear Bilateral Breath Sounds Implantable Cardiac Device Does patient have a Pacemaker or an ICD?: No Airway Exam Known Difficult Airway: No Mallampati Class: 4 Mouth Opening: Normal (> 3cm) Thyromental Distance: Greater than 3 cm Neck Range of Motion: Full ROM Neck Circumference: Normal Teeth Condition: Normal Dentition Airway Comments: High angle narrow palate ASA Classification ASA Score: ASA 2 Emergency Case?: No NPO Status NPO Status: NPO Clears >2 hours, Solids >8 hours Status Status: Not Relevant due to Medical History Anesthesia Plan Resuscitation Status: Full Code Anesthesia Technique: General Anesthesia Airway Planned: Endotracheal Tube Pain Management: Intrathecal Analgesia Monitors Used: Standard Monitors Preoperative Comments:: 50 yo female for LAVH. Previous anes: GA/no airway without issues.
[2021-03-28] MEDS: ceFAZolin 2,000 MG in Normal Saline 100 ML 200 MG IVPB (11:11)
[2021-03-28] MEDS: Bupivacaine 0.5% Pres-Free 30 ML VIAL (11:44)
--- NOTE | 2021-03-28 12:41 | UTER_PTH ---
PATIENT: Cass Ackerman LOC: OBS U#:[id number] AGE/SX: 50/F ROOM: OBS.306 RE03/28/[address]: Ana Rosa Bailey DO : 1970 BED: A DIS: 03/29/2021 SPEC #: [id number] RECD: 03/28/21 18:17 STATUS: SOUT REQ #: [id number] HARMAN: 03/28/21 12:[address]: Ana Rosa Bailey DEPT: Surgical Specimen RECD BY: Soumya Madera ENTERED: 03/28/21 18:18 SP TYPE: UTER OTHR DR: Shellie Daniels Tissues: 1 - UTERUS W OR W/O OVARIES(NOT TUMOR/PROLAPSE) Procedures: GROSS AND MICRO LEVEL 5 Comments: [id number]
--- NOTE | 2021-03-28 13:28 | ROE_ITS ---
Date of service: 03/28/21 Time of Service: 13:28 Operative Note Operative Note DATE OF PROCEDURE: 03/28/21 PRE-OP DIAGNOSIS: Dysfunctional uterine bleeding, complex ovarian cyst PROCEDURE: Laparoscopically assisted vaginal hysterectomy with right salpingo- oophorectomy and left salpingectomy SURGEON: Ana Rosa Bailey ASSISTING SURGEON: Seema Baxter ANESTHESIA TYPE: General LMA/ETT and Spinal Refer to Anesthesia Record ESTIMATED BLOOD LOSS: 150 PATHOLOGY: other (Uterus, cervix, bilateral fallopian tubes, right ovary) COMPLICATIONS: None Patient was transported to: PACU Patient's condition: stable Indications: Ongoing dysfunctional uterine bleeding and complex right ovarian cyst Findings: Bulky appearing cervix. Normal-appearing uterus. Normal-appearing fallopian tubes. Normal left ovary. Complex right ovarian cyst Procedure Description: Patient was taken the operating suite after full informed consent obtained. She had an IV running and placed in the seated position where intrathecal was placed for postoperative pain control. She then placed in dorsal supine position and general anesthesia administered with ease. She was placed in the modified dorsolithotomy position and yellowfin stirrups placed for thromboembolism protection. Exam under anesthesia revealed a uterus that was bulky in the midline and mobile. Cervix was bulky as well. There is no significant adhesive disease or adnexal mass appreciated on abdominal exam. At this point a Cordova catheter was inserted for continuous bladder drainage. Speculum inserted into the vaginal vault and cervical os identified. A ZUMI uterine manipulator was placed in the uterine cavity for uterine manipulation. Speculum was then removed and attention was turned to the abdomen. At this point after infiltration of half percent Marcaine at the umbilicus a infraumbilical skin incision was made. The intra-abdominal wall was elevated and a varies needle used to insert and create a pneumoperitoneum with a maximum pressure of 15 mmHg of CO2 gas. Under direct visualization with a 12 mm bladeless trocar under direct visualization the anterior abdomen was entered. The entire abdomen was inspected and found to be atraumatic. Uterus elevated and found to be bulky with normal-appearing fallopian tubes, a large complex approximately 5 cm right ovarian cyst with normal-appearing fallopian tubes and normal left ovary. At this point a second and third right and left lower quad rant trocar site were placed under direct visualization with a 5 mm bladeless trocar. Attention was initially turned to the left adnexa where the left fallopian tube with a paratubal cyst was elevated and cautery transected. The left round ligament was cautery transected and the left broad ligament entered. The vesicouterine peritoneum was identified and the bladder flap was created. At this point the right complex adnexal mass and fallopian tube were elevated away from the right pelvic sidewall and the infundibulopelvic ligament cautery transected and ligated. Right broad ligament was also cautery transected and ligated allowing access to the anterior leaf of the broad ligament completing the vesicouterine peritoneum and bladder flap. Uterine vessels were cauterized bilaterally and at this point after all pedicles were inspected and found to be hemostatic decision was made to enter vaginally. Pneumoperitoneum was released and attention turned to the vaginal vault. At this point the ZImpakt Protective uterine manipulator was removed speculum was placed into the vaginal vault and Elmira clamps used to grasp the anterior and posterior lips of the cervix. Circumferential incision was made with a Bovie cautery and the posterior cul-de-sac entered. In a systematic fashion the right and left uterosacral cardinal complexes were clamped transected and ligated. The anterior cul-de-sac was then entered sharply and the remainder of the uterine pedicles clamped transected and ligated. This allowed delivery of the cervix, uterus, bilateral fallopian tubes and right adnexa through the vaginal vault. This point pedicles were inspected and found to be hemostatic the anterior and posterior peritoneum identified and the vaginal cuff closed in a horizontal fashion with 0 Vicryl suture in a running locked fashion cuff was hemostatic. Attention was then returned to the abdomen where pneumoperitoneum recreated and all pedicles and vaginal cuff inspected and found to be hemostatic. Ureters were identified and peristalsing appropriately and at this point the CO2 gas was diminished to a maximum pressure of 5 mmHg. At this pressure all pedicles again were hemostatic. Procedure was then terminated. Pneumoperitoneum released and all trochars were removed from the abdomen. The fascial incision closed at the umbilical area with 0 Vicryl suture skin edges were then reapproximated with 4-0 undyed Monocryl suture and Steri-Strips were placed. At this point patient was returned to the dorsal supine position and awoke from anesthesia with ease. She was taken recovery room in stable condition with a Cordova catheter draining clear yellow urine. Complications: None apparent EBL: 150 Pathology: Cervix, uterus, bilateral fallopian tubes, right adnexa for examination. Fluids: Crystalloid per anesthesia.
[2021-03-28] MEDS: HYDROmorphone 2 MG/ML VIAL IVP (14:09)
[2021-03-28] MEDS: Normal Saline 10 ML VIAL IJ (14:09)
--- NOTE | 2021-03-28 15:19 | W.ANESPOSTOP ---
Postoperative Evaluation Date, Time and Location Date Performed: 03/28/21 Time Performed: 15:19 Patient Location: Obstetrics Vital Signs Most Recent Imported Vital Signs: Most Recent Vital Signs Temp Pulse Resp BP Pulse Ox 36.1 C L 73 15 119/63 99 03/28/21 14:28 03/28/21 14:28 03/28/21 14:28 03/28/21 14:28 03/28/21 14:28 Pain Score Most Recent Pain Score: Most Recent Pain Score Pain Level 3 03/28/21 14:28 Assessment Mental Status: Awake (Alert & Oriented to Patient Baseline) Airway and Respiratory Function: Patent airway with normal (patient baseline) respiratory exam Cardiovascular Function: Hemodynamically Stable Hydration Status: Adequately Hydrated Nausea & Vomiting: No Nausea or Vomiting Pain: Pain is tolerable per patient Peripheral Nerve Block: Patient did not receive a nerve block
--- NOTE | 2021-03-28 15:49 | W.PM.PROGNOT ---
Date of Service Date of service: 03/28/21 Time of Service: 15:50 Assessment and Plan Assessment and plan (1) Status post laparoscopic assisted vaginal hysterectomy (LAVH): Status: Acute Assessment and plan: Postoperative day #0. Doing well. Encourage ambulation. Cordova out tonight. CBC in the morning. Anticipate routine postoperative care. Subjective Subjective Patient reports: no new complaints; denies nausea and vomiting Exam Const General: cooperative and healthy appearing Resp Effort & Inspection: normal respiratory effort Cardio Rate: regular rate GI Inspection: normal to inspection and incision (Dressed, clean, dry, intact) Extrem General: normal to inspection and no clubbing, cyanosis or edema Objective Last Vital Signs Temp 97.5 F L 03/28/21 15:00 Pulse 68 03/28/21 15:00 Resp 18 03/28/21 15:00 BP 103/67 03/28/21 15:00 Pulse Ox 100 03/28/21 15:00
[2021-03-28] MEDS: Ketorolac 30 MG/ML VIAL 15 MG IVP (20:09)
[2021-03-28] MEDS: Docusate Sodium 100 MG CAP PO (20:15)
[2021-03-29] VITALS: BP 103/63; PULSE 81; RESP 18; TEMP 36.6; O2SAT 97
[2021-03-29] MEDS: Ketorolac 30 MG/ML VIAL 15 MG IVP ×2 (02:05→09:18)
[2021-03-29 05:00] VITALS: BP 108/68; PULSE 81; RESP 18; TEMP 36.6; O2SAT 97
[2021-03-29 07:15] LABS: Abs Immature Grans 0.13 10^3/uL (0.0-0.06); Absolute Lymphocyte Count 1.21 10^3/uL (1.2-3.4); Basophils % 0.2; HCT 30.8 % (36.0-46.0); HGB 8.9 g/dL (11.2-15.7); Immature Grans % 0.7; Lymphocytes % 6.9; MCH 20.6 pg (27.0-33.0); MCHC 28.9 % (32.0-36.0); MCV 71.3 fL (80-95); MPV 12.1 fL (8.0-11.0); Monocytes % 3.9; Neutrophils % 88.3; Nucleated RBC 0 %; Platelet Count 222 10^3/uL (130-400); RBC 4.32 10^6/uL (3.93-5.22); RDW-SD 46.2 fL; WBC 17.54 10^3/uL (4.4-10.8)
[2021-03-29 07:22] LABS: Absolute Basophil Count 0.04 10^3/uL (0.0-0.2); Absolute Monocyte Count 0.68 10^3/uL (0.1-0.8); Absolute Neutrophil Count 15.49 10^3/uL (1.2-6.7)
--- NOTE | 2021-03-29 07:35 | W.PM.PROGNOT ---
Date of Service Date of service: 03/29/21 Time of Service: 07:35 Assessment and Plan Assessment and plan (1) Status post laparoscopic assisted vaginal hysterectomy (LAVH): Status: Acute Assessment and plan: Patient is postoperative day #1 status post laparoscopically assisted vaginal hysterectomy with bilateral salpingectomy and right oophorectomy. She is doing well. She has good pain control. She has been ambulating and tolerating regular diet. Hemoglobin is stable at 8.9. Vital signs are stable and urine output is adequate. Discharge home later today. Subjective Subjective Patient reports: no new complaints, tolerating a regular diet and flatus; denies nausea, vomiting and shortness of breath Interval history since last seen: Patient seen and examined this morning. Doing well. Cordova catheter is out. She has been tolerating a regular diet. Pain is under good control. Anticipate discharge home today. Exam Const General: cooperative, healthy appearing, comfortable, no acute distress, well developed and well groomed Nutritional Appearance: average body habitus Eyes General: appearance normal, both eyes and all related structures Neck Neck: normal visual inspection and supple Thyroid: thyroid normal Resp Effort & Inspection: normal respiratory effort Auscultation: clear to auscultation bilaterally Cardio Rhythm: regular rhythm GI Inspection: normal to inspection and incision (Clean dry, intact) Palpation: soft, not firm, no guarding and no masses Auscultation: normal bowel sounds Skin General skin exam: no rashes or lesions noted Extrem General: normal to inspection, full ROM, no clubbing, cyanosis or edema and no calf tenderness bilaterally Objective Last Vital Signs Temp 98 F 03/29/21 05:00 Pulse 81 03/29/21 05:00 Resp 18 03/29/21 05:00 BP 108/68 03/29/21 05:00 Pulse Ox 97 03/29/21 05:00 Laboratory Results - last 24 hr 03/29/21 06:38 WBC 17.54 H RBC 4.32 Hgb 8.9 L Hct 30.8 L MCV 71.3 L MCH 20.6 L MCHC 28.9 L RDW 18.0 H Plt Count 222 MPV 12.1 H Immature Gran % 0.7 Neutrophils % 88.3 Lymphocytes % 6.9 Monocytes % 3.9 Eosinophils % 0.0 Basophils % 0.2 Nucleated RBC % 0 Absolute Neutrophils 15.49 H Absolute Lymphocytes 1.21 Absolute Monocytes 0.68 Absolute Eosinophils 0.00 Absolute Basophils 0.04
--- NOTE | 2021-03-29 07:43 | DSE_ITS ---
Date of service: 03/29/21 Time of Service: 07:44 DS: Diagnosis Discharge Diagnosis (1) Status post laparoscopic assisted vaginal hysterectomy (LAVH): Status: Acute Discharge Plan Disposition Patient Disposition: HOME Condition: Good Discharge Details Reason For Visit: LAVH Admit Date/Time: 03/28/21 07:49 Admit Provider: Ana Rosa Bailey Attending Provider: Ana Rosa Bailey Primary Care Provider: Shellie Daniels Hospital Course Hospital Course: Patient underwent a laparoscopically cystoscopy vaginal hysterectomy with bilateral salpingectomy and right oophorectomy. She was discharged home postoperative day #1 ambulating, tolerating a regular diet and oral pain medication with stable vital signs. [facility] the [facility] 2 weeks [facility]. Pathology is pending at this point. Home Meds and New Rx's Prescriptions: New ibuprofen [IBU] 800 mg tablet 800 mg PO Q8H PRNQty: 60 RF: 1 docusate sodium [Colace] 100 mg capsule 100 mg PO BID Qty: 30 RF: 1 oxycodone-acetaminophen [Percocet] 5-325 mg tablet 1 tab PO Q8H PRNQty: 10 RF: 0 Continued cholecalciferol (vitamin D3) 250 mcg (10,000 unit) tablet 250 mcg PO DAILY RF: 0 Discontinued norethindrone acetate [Aygestin] 5 mg tablet 5 mg PO BID MDD QID Qty: 90 RF: 1 ibuprofen 800 mg tablet 800 mg PO Q8H Qty: 30 RF: 0 Discharge Instructions Stand Alone Forms: DSU Post Gynecology Surgery Activity:: Pelvic rest, no heavy lif Equipment/Supplies:: No Equipment Needed Diet:: As Tolerated Discharge Orders Discharge Orders: Discharge Order (Routine); Ordered 03/29/21 Ordered By: Ana Rosa Bailey DS: Summary Summary Time spent discussing smoking cessation with patient: 3 to 10 minutes Time Spent with Patient providing and/or coordinating discharge services: Less than 30 minutes Status at Discharge Functional status at discharge: independent ambulation Overall status at discharge: patient is progressing back to baseline Mental Status: mental status grossly normal Speech and Movement: speech and movement normal Mood: congruent mood Affect: normal affect Exam Narrative Exam Narrative: See physical exam from progress note dated 03/29/2021 Psych Mental Status: mental status grossly normal Speech and Movement: speech and movement normal Mood: congruent mood Affect: normal affect DS: Data Vitals/I&O Vitals and I&O: Vital Signs Temperature 98 F 03/29/21 05:00 Temperature Source Tympanic 03/29/21 05:00 Pulse 81 03/29/21 05:00 Pulse Rhythm Regular 03/28/21 20:00 Respiratory Rate 18 03/29/21 05:00 Respiratory Effort 03/28/21 20:00 Respiratory Depth Normal 03/28/21 20:00 Respiratory Pattern Normal 03/28/21 20:00 Blood Pressure 108/68 03/29/21 05:00 Pulse Oximetry 97 03/29/21 05:00 Respiratory End-tidal CO2 30 03/28/21 14:28 Oxygen Delivery Method Room Air 03/29/21 05:00 Oxygen Flow Rate 0 03/29/21 05:00 Pain Level 1 03/29/21 00:00 Comment 03/28/21 18:50 Intake & Output 03/28/21 03/28/21 03/29/21 11:59 23:59 11:59 Intake Total 0 / 2137.529 0027.917 / 5500.255 4215 / 1535 Output Total 325 / 325 1500 / 1500 Balance 0 / 6063.726 0289.917 / 1672.917 35 / 35 Weight 192 lb 10.944 oz Intake: IV 0 / 2047.505 6947.917 / 8907.961 3163 / 1535 Oral 50 / 50 Output: Urine 175 / 175 1500 / 1500 Estimated Blood Loss 150 / 150 Other: Urine Color Pale Pale Urine Appearance Clear Clear Emesis Description None Data Completed and Pending Labs on day of discharge: Labs from last 24 hours 03/29/21 06:38 WBC 17.54 H RBC 4.32 Hgb 8.9 L Hct 30.8 L MCV 71.3 L MCH 20.6 L MCHC 28.9 L RDW 18.0 H Plt Count 222 MPV 12.1 H Immature Gran % 0.7 Neutrophils % 88.3 Lymphocytes % 6.9 Monocytes % 3.9 Eosinophils % 0.0 Basophils % 0.2 Nucleated RBC % 0 Absolute Neutrophils 15.49 H Absolute Lymphocytes 1.21 Absolute Monocytes 0.68 Absolute Eosinophils 0.00 Absolute Basophils 0.04 PFSH Medical History Abdominal pain Adjustment disorder with mixed anxiety and depressed mood Bilateral ovarian cysts Ovarian cyst, right Preop testing Sleep disorder Smoker unmotivated to quit Vomiting alone Weight loss, unintentional Weight loss, unintentional Surgical History BACK SURGERY 2004- @ [facility] [place] History of esophagogastroduodenoscopy (EGD) (~10/14/19) Open Carpal Tunnel release (~1996) LEFT HAND @ [facility] Status post dilation and curettage Status post laparoscopic assisted vaginal hysterectomy (LAVH) With bilateral salpingectomy and right oophorectomy Family History Mother Diabetes Hyperlipidemia Father Diabetes Heart disease Grandfather No problems noted. Grandfather No problems noted. Grandmother No problems noted. Grandmother No problems noted. Social History Smoking/Tobacco Use Status: Current every day Tobacco Type: cigarettes Smoking risk assessment performed?: Yes Alcohol Intake: current Alcohol Intake frequency: holidays/special occasions only Alcohol type: hard liquor Drug use: Never Substance use type: does not use Current gender identity: female Do you feel safe at home: Yes Do you feel safe in your relationship?: Yes
[2021-03-29] MEDS: Docusate Sodium 100 MG CAP PO (09:00)
[2021-03-29 09:26] VITALS: BP 115/73; PULSE 81; RESP 16; TEMP 36.8; O2SAT 97
== END 2021-03-29 11:05 | disposition home or self-care (01) | DRG 743 ==
LOC: PDS 07:49 → OBS 15:15
PROVIDERS: Admitting Provider Obstetrics & Gynecology; PCP Nurse Practitioner; Visit Provider Obstetrics & Gynecology
PROC: 0UT9FZZ Resection of Uterus, Via Natural or Artificial Opening With Percutaneous Endoscopic Assistance (ICD-10-PCS; CPT 58552; principal; 2021-03-28 10:30)
DX: N93.9 Abnormal uterine and vaginal bleeding, unspecified (principal); D25.1 Intramural leiomyoma of uterus; D25.2 Subserosal leiomyoma of uterus; N83.01 Follicular cyst of right ovary; N88.8 Other specified noninflammatory disorders of cervix uteri; N83.8 Other noninflammatory disorders of ovary, fallopian tube and broad ligament; N87.9 Dysplasia of cervix uteri, unspecified; F17.210 Nicotine dependence, cigarettes, uncomplicated; G47.9 Sleep disorder, unspecified; N83.202 Unspecified ovarian cyst, left side; N83.201 Unspecified ovarian cyst, right side; F43.23 Adjustment disorder with mixed anxiety and depressed mood
CPT/HCPCS: 58552; 52000; 36415; 81025; 85025; 88307; J0131; J0690; J1100; J1200; J1885; J2250; J2405; J2704

== ENCOUNTER 2021-12-18 08:48 | Emergency (ER) | payer MEDICAID, SELFPAY ==
[2021-12-18 08:52] VITALS: BP 142/72; PULSE 94; RESP 16; TEMP 36.6; O2SAT 96
--- NOTE | 2021-12-18 09:02 | W.ED.GENAD ---
Discharge Plan Disposition Patient Disposition: HOME Condition: Stable Discharge Details Clinical Impression: Sinusitis Primary Care Provider: Shellie Daniels ED Provider: Emily Corea Home Meds and New Rx's Prescriptions: New amoxicillin-pot clavulanate 875-125 mg tablet 1 tab PO BID 14 Days Qty: 28 0RF methylprednisolone 4 mg tablets,dose pack See Rx Instructions .ROUTE .COMPLEX MDD see package directions 6 Days Qty: 21 0RF Rx Instructions: orally per package directions PO per package directions; Continued cholecalciferol (vitamin D3) 250 mcg (10,000 unit) tablet 250 mcg PO DAILY ibuprofen [IBU] 800 mg tablet 800 mg PO Q8H PRNQty: 60 1RF Discharge Instructions Instructions: Sinusitis (ED) Additional Instructions: Your symptoms are likely due to a sinus infection. This can often start as a viral infection but can progress to a bacterial infection. A prescription for antibiotics and steroids have been sent electronically to your pharmacy to take as directed until finished. You can also try [id number] nasal sprays such as Flonase, Nasacort or Nasonex to use as needed and directed. It is advisable to stop smoking as this can prolong or lead to recurrent infections in addition to risk of chronic lung diseases and association with multiple types of cancers. Follow-up with your primary care doctor in 1 week and for referral to the Ear, Nose and Throat specialist if your symptoms do not improve or worsen. Return to the emergency department with any worsening or new concerning symptoms such as persistent fevers, difficulty breathing, or any other concerns. Please quarantine until your COVID test result is available and if confirmed to be negative. Stand Alone Forms: PENDING COVID-19 TESTING Referrals: Familia Robbins MD [ [facility] STAFF PHYSICIAN] - Discharge Data Discharge Physician: Emily Corea Medical Decision Making 51-year-old female with a history of tobacco dependence and hysterectomy presents for facial pain, headache, nasal congestion, green nasal discharge, postnasal drip and intermittent cough for the past 3 weeks. She denies any known fever and appears nontoxic. She is afebrile here. She has bilateral frontal sinus tenderness. Normal oropharynx. No lymphadenopathy, drooling or trismus. Lungs clear bilaterally. No meningeal signs. Suspect sinus infection. Considering the prolonged nature of her symptoms and history of smoking, presentation is likely bacterial so will treat with antibiotics. History and presentation does not appear consistent with peritonsillar abscess, pneumonia, and she has no signs on physical exam which demonstrate suspected esophageal foreign body or stricture. She is advised to drink plenty of fluids and cool soft foods and recommended to eat while taking the antibiotics. A send out COVID test was obtained. Prescriptions for Augmentin and Medrol Dosepak sent electronically to her pharmacy. She was given ENT referral information if needed. Usual and customary return precautions given prior to discharge. Medical Records Medical records reviewed: Yes I reviewed the patient's medical records. HPI General Mode of arrival: ambulatory. Date/Time Provider Initiated Documentation: 12/18/21 08:56. Limitations to Documentation: no limitations. Information obtained by: patient. HPI Narrative: Patient is a 51-year-old female with a history of tobacco dependence presents for facial pain, headache, nasal congestion, green nasal discharge, postnasal drip and intermittent cough for the past 3 weeks. Patient states her symptoms started as facial pain, headache and nasal congestion. She states her nasal discharge was initially clear and has been green for the past couple weeks. She states she has taken [id number] sinus medication in addition to Tylenol and ibuprofen without relief. She states she has not seen her primary care doctor for these complaints. She states she has received a total of 4 COVID vaccines and has had multiple negative at home COVID tests. She denies any known exposure to COVID. She denies any fever, or significant difficulty breathing. She states she is occasionally coughing and bringing up green sputum. She states when she attempts to eat this triggers a cough that she has not been eating much for the past couple days. She states she has been able to drink liquids. Related Data Home Medications Medication Instructions Recorded Confirmed cholecalciferol (vitamin D3) 250 250 mcg PO DAILY 10/04/19 12/18/21 mcg (10,000 unit) tablet ibuprofen 800 mg tablet (IBU) 800 mg PO Q8H PRN #60 tabs 03/29/21 12/18/21 amoxicillin 875 mg-potassium 1 tab PO BID 14 days #28 tabs 12/18/21 clavulanate 125 mg tablet methylprednisolone 4 mg tablets in See Rx Instructions .Route 12/18/21 a dose pack .COMPLEX ear and dental infection 6 days #21 dose pk Previous Rx's Medication Instructions Recorded ibuprofen 800 mg tablet (IBU) 800 mg PO Q8H PRN #60 tabs 03/29/21 amoxicillin 875 mg-potassium 1 tab PO BID 14 days #28 tabs 12/18/21 clavulanate 125 mg tablet methylprednisolone 4 mg tablets in See Rx Instructions .Route 12/18/21 a dose pack .COMPLEX ear and dental infection 6 days #21 dose pk Allergies Allergy/AdvReac Type Severity Reaction Status Date / Time No Known Allergies Allergy Unverified 12/18/21 08:56 General Stated Complaint: RespSymp PAULA: 4 Review of Systems All systems reviewed & are unremarkable except as noted in HPI and below Constitutional Constitutional: Denies chills, Denies excessive sweating, Denies fatigue, Denies fever(s), Denies weakness and Denies weight loss Eyes Eyes: Reports system reviewed and no additional complaints, except as documented and Denies blurry vision ENT Ears, Nose, Mouth, and Throat: Denies vertigo, Denies dizziness, Denies otalgia, Reports nasal congestion, Reports nasal discharge, Reports sinus pain, Reports sinus pressure, Reports sore throat and Denies throat swelling Cardiovascular Cardiovascular: Denies chest pain, Denies syncope, Denies rapid heart rate and Denies dyspnea Respiratory Respiratory: Denies chest congestion, Reports cough, Denies pain on inspiration and Denies dyspnea Gastrointestinal Gastrointestinal: Denies abdominal pain, Denies diarrhea and Denies vomiting Genitourinary Genitourinary: Denies hematuria, Denies dysuria and Denies flank pain Musculoskeletal Musculoskeletal: Denies back pain and Denies joint swelling Integumentary/Breasts Skin/Breast: Denies lesions and Denies rash Neurologic Neurologic: Denies behavioral changes, Denies confusion, Denies vertigo, Denies dizziness, Denies syncope, Denies localized weakness and Denies weakness Psychiatric Psychiatric: Denies behavioral changes, Denies confusion and Denies depression Endocrine Endocrine: Denies excessive sweating and Denies fatigue Hematologic/Lymphatic Hematologic/Lymphatic: Denies easy bruising and Denies lymphadenopathy Allergic/Immunologic Allergic/Immunologic: Denies throat swelling PFSH All Active Problems (Updated 12/18/21 @ 09:19 by Emily Corea DO) Sinusitis (Acute) Status post laparoscopic assisted vaginal hysterectomy (LAVH) (Acute) With bilateral salpingectomy and right oophorectomy Abdominal pain (Acute) Back pain (Acute) Preop testing (Acute) Vomiting alone (Acute) Smoker unmotivated to quit (Acute) Weight loss, unintentional (Acute) Medical History Adjustment disorder with mixed anxiety and depressed mood Bilateral ovarian cysts Sleep disorder Weight loss, unintentional Surgical History BACK SURGERY 2004- @ [facility] [place] History of esophagogastroduodenoscopy (EGD) (~10/14/19) Open Carpal Tunnel release (~1996) LEFT HAND @ [facility] Status post dilation and curettage Family History Mother Diabetes Hyperlipidemia Father Diabetes Heart disease Grandfather No problems noted. Grandfather No problems noted. Grandmother No problems noted. Grandmother No problems noted. Social History Smoking/Tobacco Use Status: Current every day Tobacco Type: cigarettes Smoking risk assessment performed?: Yes Alcohol Intake: current Alcohol Intake frequency: holidays/special occasions only Alcohol type: hard liquor Drug use: Never Substance use type: does not use Current gender identity: female Do you feel safe at home: Yes Do you feel safe in your relationship?: Yes Exam Const General: cooperative and no acute distress Orientation: alert, awake and oriented x3 HENMT Head: normal to inspection Ears: hearing grossly normal bilaterally, external ears normal and TM's normal bilaterally General nose exam: external nose normal Face and sinus: normal facial exam and sinus tenderness frontal Mouth: oral mucosae normal Teeth and gingiva: dentition normal Throat: posterior oropharynx normal Eyes General: appearance normal, both eyes and all related structures Eyelids: eyelids normal Pupils: PERRL EOM: EOM intact bilaterally Neck Neck: normal visual inspection Lymphatic: no lymphadenopathy noted Chest Chest: normal inspection of the chest Resp Effort & Inspection: normal respiratory effort and able to speak in complete sentences Auscultation: clear to auscultation bilaterally, no rales, no rhonchi and no wheezes Cardio Rate: regular rate Rhythm: regular rhythm GI Inspection: normal to inspection Palpation: soft, not firm, no guarding, no hepatosplenomegaly, no masses and nontender Auscultation: normal bowel sounds Back/Spine/Pelvis Back: no CVA tenderness Skin General skin exam: no rashes or lesions noted Neuro General: patient alert and patient awake Cognition: normal cognition Speech: speech normal Gait: normal gait Motor: muscle tone normal throughout Sensory Exam: no sensory deficits noted Extrem General: normal to inspection, full ROM and capillary refill normal Psych Appearance: grossly normal Mental Status: mental status grossly normal Speech and Movement: speech and movement normal Affect: normal affect Thought Process: normal Course Vital Signs Vital signs: Vital Signs Temperature 97.9 F 12/18/21 08:52 Pulse 94 H 12/18/21 08:52 Respiratory Rate 16 12/18/21 08:52 Blood Pressure 142/72 H 12/18/21 08:52 Pulse Oximetry 96 12/18/21 08:52 Temperature 97.9 F 12/18/21 08:52 Temperature Source Temporal Artery Scan 12/18/21 08:52 Pulse 94 H 12/18/21 08:52 Respiratory Rate 16 12/18/21 08:52 Respiratory Effort Non-Labored 12/18/21 08:57 Blood Pressure 142/72 H 12/18/21 08:52 Blood Pressure Position Sitting 12/18/21 08:52 Pulse Oximetry 96 12/18/21 08:52 Oxygen Delivery Method Room Air 12/18/21 08:52 Oxygen Flow Rate 0 12/18/21 08:52 Pain Level 0 12/18/21 08:52
[2021-12-20 11:06] LABS: COVID-19 RT-PCR UVMMC Result Negative (Negative)
--- NOTE | 2021-12-25 12:08 | NUR.NOTE ---
Covid results returned negative, attempted to reach via telephone, telephone number is inactive. Reults being mailed.Nursing Note:
== END 2021-12-18 09:35 | disposition home or self-care (01) ==
PROVIDERS: Emergency Provider Physician Assistant; PCP Nurse Practitioner
DX: J01.80 Other acute sinusitis (principal); Z20.822 Contact with and (suspected) exposure to COVID-19
CPT/HCPCS: 99283; U0003

== ENCOUNTER 2024-02-22 08:53 | Emergency (ER) | payer MEDICAID, SELFPAY ==
[2024-02-22 08:57] VITALS: BP 146/91; PULSE 106; RESP 17; O2SAT 98
--- NOTE | 2024-02-22 09:19 | ED.GENADUL_ITS ---
Discharge Plan Disposition Patient Disposition: Home Condition: Good Discharge Details Clinical Impression: Acute neck pain, Cervical radicular pain, Muscle spasm Primary Care Provider: Romie Wise ED Provider: Eirnn Garcia Home Meds and New Rx's Prescriptions: New methocarbamol 1,000 mg tablet 1,000 mg PO TID PRNQty: 14 0RF prednisone 50 mg tablet 50 mg PO DAILY 4 Days Qty: 4 0RF Continued cholecalciferol (vitamin D3) 250 mcg (10,000 unit) tablet 250 mcg PO DAILY ibuprofen [IBU] 800 mg tablet 800 mg PO Q8H PRNQty: 60 1RF Discharge Instructions Instructions: Muscle Spasm ED, Neck Pain ED Additional Instructions: As we discussed, your exam is concerning for muscle spasm likely contributing to you having symptoms compression of a nerve causing pain into your arm. Please encourage hydration. Please encourage gentle stretching as we discussed. May continue with heat or ice. He may also use topical options such as lidocaine patches, these are available [id number]. Please continue with Tylenol and ibuprofen, take as directed on the packaging. You had dosing of both here this morning. Have also put you on steroids, prednisone, to help with the swelling, you are given your dose for today here and next dose will be tomorrow morning. I have also prescribed you methocarbamol which is a muscle relaxant, you are given a dose here this morning. This medication can make you sleepy. Please do not drink alcohol or drive while taking this medication. Referral for physical therapy is attached. I would also like for you to follow- up with your primary care in 1 week for reevaluation. As we discussed, you may need to have an MRI completed should your symptoms worsen or persist. If you develop numbness in the hand, weakness in the hand, increased pain or other new/worsening symptom please to care urgently once again. Stand Alone Forms: Physical Therapy Referral Referrals: Romie Wise NP [Primary Care Provider] - Discharge Data Discharge Date/Time-TO BE ENTERED AT DEPARTURE: 02/22/24 09:41 HPI General Date/Time Provider Initiated Documentation: 02/22/24 08:55 . Limitations to Documentation: no limitations . Information obtained by: patient and RN notes reviewed . History of Present Illness 53 year old F presents to the emergency department with the chief complaint of Left shoulder, neck and upper extremity pain, described as severe, Quality is described as stabbing, and is localized to the neck, left and upper extremity. Patient extremity. Patient started experiencing this day(s) and it has been constant. Immobilization improves symptom(s), (Having arm up also discomfort) Movement worsens symptoms . Patient notes no other symptoms.. Patient did receive the following treatments prior to arrival, none Related Data Home Medications ?Medication ?Instructions ?Recorded ?Confirmed cholecalciferol (vitamin D3) 250 250 mcg PO DAILY 10/04/19 02/22/24 mcg (10,000 unit) tablet ibuprofen 800 mg tablet (IBU) 800 mg PO Q8H PRN #60 tabs 03/29/21 02/22/24 methocarbamol 1,000 mg tablet 1,000 mg PO TID PRN #14 tabs 02/22/24 prednisone 50 mg tablet 50 mg PO DAILY 4 days #4 tabs 02/22/24 Previous Rx's ?Medication ?Instructions ?Recorded ibuprofen 800 mg tablet (IBU) 800 mg PO Q8H PRN #60 tabs 03/29/21 methocarbamol 1,000 mg tablet 1,000 mg PO TID PRN #14 tabs 02/22/24 prednisone 50 mg tablet 50 mg PO DAILY 4 days #4 tabs 02/22/24 Allergies Allergy/AdvReac Type Severity Reaction Status Date / Time No Known Allergies Allergy Unverified 02/22/24 09:01 General Stated Complaint: Orthopedic PAULA: 4 Review of Systems Constitutional Constitutional: Reports as per HPI, Denies chills, Denies fever(s), Denies headache(s) and Denies weakness ENT Ears, Nose, Mouth, and Throat: Denies headache(s) Cardiovascular Cardiovascular: Reports as per HPI Respiratory Respiratory: Reports as per HPI and Denies cough Musculoskeletal Musculoskeletal: Reports as per HPI Integumentary/Breasts Skin/Breast: Reports as per HPI, Denies rash and Denies wounds Neurologic Neurologic: Reports as per HPI, Denies headache(s), Denies paresthesias and Denies weakness Exam Const General: cooperative, healthy appearing, uncomfortable, no acute distress, well developed and well groomed Nutritional Appearance: average body habitus and well nourished Orientation: alert and awake Neck Neck: normal visual inspection, limited ROM, no lymphadenopathy, trachea midline, supple, no anterior neck swelling and no lymphadenopathy noted Chest Chest: normal inspection of the chest and normal palpation of entire chest wall Resp Effort & Inspection: normal respiratory effort, able to speak in complete sentences and no respiratory distress Auscultation: clear to auscultation bilaterally Cardio Rate: regular rate Rhythm: regular rhythm Heart Sounds: S1 normal and S2 normal Back/Spine/Pelvis Cervical Spine: No cervical ROM normal, No Lhermitte's sign positive, loss of normal cervical lordosis, cervical muscular tenderness (`along left side), pain with cervical ROM, cervical spasm (along left side), cervical spinal tenderness, No step off deformity and cervical ROM abnormal (able to turn to left but not to right, causes pain in the left side) Thoracic/Lumbar Spine: thoracic and lumbar spine normal to inspection Skin General skin exam: no rashes or lesions noted Lesions: no lesions Rashes: no rashes Trauma: no lacerations or abrasions Neuro General: patient alert and patient awake Cognition: normal cognition Speech: speech normal Gait: normal gait Motor: muscle tone normal throughout Sensory Exam: no sensory deficits noted Extrem Left upper extremity: normal to inspection, full ROM, normal capillary refill, no joint enlargement, shoulder/upper arm Details: inspection abnormal, tenderness (generalized tenderness, comes from upper aspect), axillary nerve sensory function normal and normal ROM; no swelling, no crepitus, no penetrating wound, no deformity and no unsual warmth, elbow/forearm Details: normal to inspection, tenderness (generalized tenderness, comes from upper aspect), normal ROM and distal pulses intact; no swelling, no crepitus, no penetrating wound and no deformity, wrist Details: normal to inspection, normal ROM, normal vascular exam and radial pulse present; no tenderness, no swelling, no crepitus and no deformity and hand Details: normal to inspection, normal capillary refill, neuromotor exam normal, neurosensory exam normal, tendon exam normal, normal ROM of fingers and no swelling; no tenderness, no unusual warmth, no ecchymosis and no crepitus; no cyanosis and no edema Course Vital Signs Vital signs: Vital Signs Pulse 106 H 02/22/24 08:57 Respiratory Rate 17 02/22/24 08:57 Blood Pressure 146/91 H 02/22/24 08:57 Pulse Oximetry 98 02/22/24 08:57 Pulse 106 H 02/22/24 08:57 Respiratory Rate 17 02/22/24 08:57 Respiratory Effort Normal 02/22/24 09:01 Blood Pressure 146/91 H 02/22/24 08:57 Blood Pressure Position Sitting 02/22/24 08:57 Pulse Oximetry 98 02/22/24 08:57 Oxygen Delivery Method Room Air 02/22/24 08:57 Oxygen Flow Rate 0 02/22/24 08:57 Pain Level 9 02/22/24 09:01 Medical Decision Making Patient is a pleasant RHD 53-year-old female presenting today with chief complaint of left upper extremity pain. She reports that when she awoke 3 days ago she had severe pain emanating from the left side of her neck into the left shoulder. Since then, the pain has continued to increase as has her neck stiffness with the pain and going throughout the entire left limb now. she has not noted any weakness. Feels like the hand isFalling asleep without the tingling. However, she denies any numbness. She reports pain in the shoulder, elbow and hand. However, the arm feels best when resting up over her head. She denies any trauma. Has not had pain like this historically. She has had issues with lower back pain as well as disc issues but no such issues in the neck that she is aware of. She initially felt like she slept want wrong but as the pain has persisted, she is now presenting for evaluation. She denies any headache. Pain does not radiate to the contralateral side. No pain into the chest, no difficulty breathing. No other neurological symptoms or weaknesses. No rashes. Denies any fevers or chills. On exam, patient appears very uncomfortable. She is tearful. She is resting the arm up over the top of her head with the flexor surface of the elbow resting on top of her head which she reports improved her discomfort. In this position, she is neurologically intact and has 2+ distal pulses. She continues to be objectively neurologically intact with the arm down at her side and continues to have intact pulses. However, she reports that the pain is increased when the arm is down at her side. Her pain is primarily on along the left side of the neck where she also has some palpable muscle spasms. She does have some midline discomfort but no step-off. Has some straightening of the cervical spine consistent with the muscle spasms that are palpated. No pain elsewhere about the spine or pain on the contralateral side. Compression of the C-spine is limited as she is not able to tip to the right at all secondary to the muscle spasm and pain in the C-spine. However, she does have an increase in pain when she tips to the left with compression. She has full range of motion of her elbow wrist and hands. She is neurologically intact with no evidence to suggest disc neurologic dysfunction. Primarily concerned at this time for nerve root compression. No objective deficits at this time are appreciated but patient is clearly uncomfortable. C oncern primarily for muscle spasm contributing to this likely from her sleeping in an unusual position as she had initially reported. Will give her Tylenol ibuprofen to help with discomfort. Methocarbamol to help with spasm. Will also treat with steroids to help with inflammation. I encouraged heat or ice, gentle stretching. We discussed activities that she should avoid. I encouraged physical therapy although she has had issues with PT in the past. I also encouraged her to discuss this further with her primary care provider. Encourage close follow-up with primary care, patient may require MRI if symptoms or not improving. As it is we can, unable to obtain MRI at this time, also do not note any neurovascular compromise at this time requiring an emergent MRI. Patient I discussed having her stay assessing her pain management after Tylenol, ibuprofen, methocarbamol, Lidoderm patch patient prefers to be discharged to home with close follow-up with primary care. Strict return precautions were discussed. All of her questions and concerns were addressed and patient is agreement with this plan. Quality:SDOH Health Related Social Needs: No Data to Display PFSH All Active Problems (Updated 02/22/24 @ 09:29 by ROSALIE Vance) Muscle spasm (Acute) Cervical radicular pain (Acute) Acute neck pain (Acute) Status post laparoscopic assisted vaginal hysterectomy (LAVH) (Acute) With bilateral salpingectomy and right oophorectomy Abdominal pain (Acute) Back pain (Acute) Preop testing (Acute) Vomiting alone (Acute) Smoker unmotivated to quit (Acute) Weight loss, unintentional (Acute) Medical History Adjustment disorder with mixed anxiety and depressed mood Bilateral ovarian cysts Sleep disorder Weight loss, unintentional Surgical History BACK SURGERY 2004- @ [facility] – [place] History of esophagogastroduodenoscopy (EGD) (~10/14/19) Open Carpal Tunnel release (~1996) LEFT HAND @ [facility] Status post dilation and curettage Family History Mother Diabetes Hyperlipidemia Father Diabetes Heart disease Grandfather No problems noted. Grandfather No problems noted. Grandmother No problems noted. Grandmother No problems noted. Social History Smoking/Tobacco Use Status: Current every day Tobacco Type: cigarettes Smoking risk assessment performed?: Yes Alcohol Intake: current Alcohol Intake frequency: holidays/special occasions only Alcohol type: hard liquor Drug use: Never Substance use type: does not use Current gender identity: female Do you feel safe at home: Yes Do you feel safe in your relationship?: Yes
[2024-02-22] MEDS: predniSONE 20 MG TAB 60 MG PO (09:26)
[2024-02-22] MEDS: Acetaminophen 500 MG TAB 1000 MG PO (09:26)
[2024-02-22] MEDS: Methocarbamol 750 MG TAB 1500 MG PO (09:26)
[2024-02-22] MEDS: Ibuprofen 600 MG TAB PO (09:27)
[2024-02-22] MEDS: Lidocaine 5% Patch 1 PATCH TP (09:27)
== END 2024-02-22 09:41 | disposition home or self-care (01) ==
LOC: ER 10:27
PROVIDERS: Emergency Provider Physician Assistant; PCP Nurse Practitioner Family
DX: M54.12 Radiculopathy, cervical region (principal); M62.838 Other muscle spasm; F17.210 Nicotine dependence, cigarettes, uncomplicated
CPT/HCPCS: 99283; J7512